=== PATIENT | male | born 1960 | race Caucasian/White ===

== ENCOUNTER → 2016-10-26 | Outpatient (CLI) | payer BC ==
[2015-03-08 10:45] VITALS: BP 140/65
[~2016-10-26] MED LIST: CELE200C PO; CIPR500T94 PO; CYCL10TA2 PO; HYDR-2762 PO; LISI-338 PO; OXYC-323 PO; Oxycodone Hcl/Acetaminophen PO
--- NOTE | 2016-10-28 20:08 | SLEEP ---
DATE OF STUDY: 10/26/2016 ATTENDING PHYSICIAN: Dr. Roque Gilmore. The patient is a 56-year-old who weighs 210 pounds with a BMI of 28. The patient had a history of sleep apnea, which was mild with moderate increase during supine sleep based on a study in 2012. At that time, he weighed 305 pounds. As a result of 100+ pound weight loss, he ____ for another sleep study. The patient had undergone gastric bypass. During the night study, the patient spent 408 minutes in bed and slept for 374 minutes with a sleep efficiency of 92%. Sleep latency was 3 minutes with a REM latency of 44 minutes, which is short. Overall, sleep architecture showed normal stage 1 sleep, increased stage 2 sleep, normal slow wave and normal REM sleep. During the initial diagnostic portion of the study, the patient slept for 134 minutes. During this time, there were 10 obstructive apneas, 3 mixed and no central apneas. There were 24 hypopneas. The patient's apnea-hypopnea index was 17 per hour, supine index 26 per hour and a REM index of 64 per hour. Review of nocturnal oximetry study revealed a mean oxygen saturation of 92% with the lowest of 79%. 9% of time oxygen saturation remained between 80% and 89%. EKG monitoring revealed normal sinus rhythm, average heart rate was 61 beats per minute, no sustained arrhythmias were observed. PLMS were seen at index of 45 per hour and 2 per hour caused EEG arousals. The patient met the criteria for CPAP initiation. It was started at 5 cm of water and titrated up to 9 cm of water. At the final pressure, the patient had 108 minutes of sleep. The patient had supine sleep throughout with the REM sleep was also observed. AHI was reduced to 0 per hour and oxygen saturation remained above 93%. The patient used a medium size full face mask. IMPRESSION: 1. Moderate sleep apnea-hypopnea syndrome with an AHI of 17 per hour with worsening AHI of 64 per hour during REM sleep. 2. Nocturnal hypoxia secondary to obstructive sleep apnea, but resolved with CPAP. 3. Severe periodic limb movements of sleep. RECOMMENDATIONS: 1. CPAP at 9 cm of water completely eliminated, the patient's sleep apnea should be used on a nightly basis. 2. Follow up in 4-6 weeks to assess compliance with CPAP and to document clinical improvement. 3. Further weight loss is advised. 4. Avoid [employer] depressants. 5. Caution regarding driving until symptoms of sleep apnea resolve with the use of CPAP. 6. The patient should be further evaluated for symptoms of restless legs during the day and if present, it can be treated with dopaminergic agonist agents. NADEEM JACKMAN MD DR: NICOLAS/gallito JOB#: [id number] / [id number] ROQUE Chan MD MTDD
== END | disposition home or self-care (01) ==
LOC: SLPLAB 18:47
PROVIDERS: ATTEND Family Medicine
DX: G47.33 Obstructive sleep apnea (adult) (pediatric) (principal)
CPT/HCPCS: 95810

== ENCOUNTER 2018-09-18 08:32 | Inpatient (IN) | payer BC ==
[~2018-09-18] VITALS: Ht 182.9 cm; Wt 95.3 kg
[~2018-09-18 08:32] MED LIST changes: -HYDR-2762 PO; +HYDR-2765 PO; -OXYC-323 PO; +OXYC1TAB15 PO
[2018-09-18] MEDS ORDERED: IV NORMAL SALINE 1000ML BAG 1,000 ML IV SCH (09:01)
--- NOTE | 2018-09-18 09:08 | PHYS DOC ---
Past Medical History Past Medical History: No Pertinent History Additional Past Surgical Histo: gastric bypass, multiple back surgeries Alcohol Use: None Drug Use: None Adult General Chief Complaint Chief Complaint: BACK PAIN - NO INJURY HPI HPI Patient is a 58 year old male who presents with upper abdominal pain that radiates into his back. This started shortly before arrival. Patient was going to the store. It was initially severe, less so now. There was some nausea, no vomiting. No worse with ambulation. Nothing seems to make it better or worse. Patient has surgical history of gastric bypass.[] Review of Systems Review of Systems Constitutional: Denies fever or chills [] Eyes: Denies change in visual acuity, redness, or eye pain [] HENT: Denies nasal congestion or sore throat [] Respiratory: Denies cough or shortness of breath [] Cardiovascular: No chest pain or palpitations[] GI: See history of present illness[] : Denies dysuria or hematuria [] Musculoskeletal: Denies back pain or joint pain [] Integument: Denies rash or skin lesions [] Neurologic: Denies headache, focal weakness or sensory changes [] Endocrine: Denies polyuria or polydipsia [] All other systems were reviewed and found to be within normal limits, except as documented in this note. Current Medications Current Medications Current Medications Medications (Trade) Dose Ordered Sig/Rosita Start Time Stop Time Status Last Admin Dose Admin Info (CONTRAST GIVEN -- Rx MONITORING) 1 each PRN DAILY PRN 09/18/18 09:45 09/20/18 09:44 Iohexol (Omnipaque 300 Mg/ml) 75 ml 1X ONCE 09/18/18 09:45 09/18/18 09:46 DC 09/18/18 09:37 75 ML Ondansetron HCl (Zofran) 4 mg 1X ONCE 09/18/18 09:15 09/18/18 09:16 DC 09/18/18 09:20 4 MG Pantoprazole Sodium (PROTONIX VIAL for IV PUSH) 40 mg 1X ONCE 09/18/18 09:15 09/18/18 09:16 DC 09/18/18 09:22 40 MG Sodium Chloride 1,000 ml @ 1,000 mls/hr Q1H 09/18/18 09:01 09/18/18 10:00 DC 09/18/18 09:18 1,000 MLS/HR Allergies Allergies Allergies Coded Allergies Type Severity Reaction Last Updated Verified No Known Drug Allergies 03/08/15 No Physical Exam Physical Exam Constitutional: Well developed, well nourished, no acute distress, non-toxic appearance. [] HENT: Normocephalic, atraumatic, bilateral external ears normal, oropharynx moist, no oral exudates, nose normal. [] Eyes: PERRLA, EOMI, conjunctiva normal, no discharge. [] Neck: Normal range of motion, no tenderness, supple, no stridor. [] Cardiovascular:Heart rate regular rhythm, no murmur [] Lungs & Thorax: Bilateral breath sounds clear to auscultation [] Abdomen: Bowel sounds normal, soft, gastric tenderness, no rebound, no guarding , no rigidity, no masses, no pulsatile masses. [] Skin: Warm, dry, no erythema, no rash. [] Back: No tenderness, no CVA tenderness. [] Extremities: No tenderness, no cyanosis, no clubbing, ROM intact, no edema. [] Neurologic: Alert and oriented X 3, normal motor function, normal sensory function, no focal deficits noted. [] Psychologic: Affect normal, judgement normal, mood normal. [] Current Patient Data Vital Signs Vital Signs Date Time Temp Pulse Resp B/P (MAP) Pulse Ox O2 Delivery O2 Flow Rate FiO2 09/18/18 09:00 98.6 69 16 126/74 (91) 98 Room Air 98.6 Lab Values Laboratory Tests Test 09/18/18 08:39 09/18/18 09:00 Urine Collection Type Unknown Urine Color Yellow Urine Clarity Clear Urine pH 7.5 Urine Specific Ashley 1.020 Urine Protein Negative mg/dL (NEG-TRACE) Urine Glucose (UA) Negative mg/dL (NEG) Urine Ketones (Stick) Negative mg/dL (NEG) Urine Blood Negative (NEG) Urine Nitrite Negative (NEG) Urine Bilirubin Negative (NEG) Urine Urobilinogen Dipstick 1.0 mg/dL (0.2 mg/dL) Urine Leukocyte Esterase Negative (NEG) Urine RBC 0 /HPF (0-2) Urine WBC 1-4 /HPF (0-4) Urine Squamous Epithelial Cells Occ /LPF Urine Bacteria 0 /HPF (0-FEW) White Blood Count 3.8 x10^3/uL (4.0-11.0) L Red Blood Count 5.27 x10^6/uL (4.30-5.70) Hemoglobin 15.2 g/dL (13.0-17.5) Hematocrit 45.7 % (39.0-53.0) Mean Corpuscular Volume 87 fL (79-100) Mean Corpuscular Hemoglobin 29 pg (25-35) Mean Corpuscular Hemoglobin Concent 33 g/dL (31-37) Red Cell Distribution Width 13.3 % (11.5-14.5) Platelet Count 198 x10^3/uL (140-400) Neutrophils (%) (Auto) 48 % (31-73) Lymphocytes (%) (Auto) 33 % (24-48) Monocytes (%) (Auto) 13 % (0-9) H Eosinophils (%) (Auto) 6 % (0-3) H Basophils (%) (Auto) 1 % (0-3) Neutrophils # (Auto) 1.8 x10^3uL (1.8-7.7) Lymphocytes # (Auto) 1.2 x10^3/uL (1.0-4.8) Monocytes # (Auto) 0.5 x10^3/uL (0.0-1.1) Eosinophils # (Auto) 0.2 x10^3/uL (0.0-0.7) Basophils # (Auto) 0.0 x10^3/uL (0.0-0.2) Prothrombin Time 13.3 SEC (11.7-14.0) Prothrombin Time INR 1.0 (0.8-1.1) Sodium Level 144 mmol/L (136-145) Potassium Level 3.8 mmol/L (3.5-5.1) Chloride Level 106 mmol/L (98-107) Carbon Dioxide Level 28 mmol/L (21-32) Anion Gap 10 (6-14) Blood Urea Nitrogen 11 mg/dL (8-26) Creatinine 0.6 mg/dL (0.7-1.3) L Estimated GFR (Cockcroft-Gault) 139.4 BUN/Creatinine Ratio 18 (6-20) Glucose Level 122 mg/dL (70-99) H Calcium Level 8.4 mg/dL (8.5-10.1) L Total Bilirubin 0.4 mg/dL (0.2-1.0) Aspartate Amino Transferase (AST) 55 U/L (15-37) H Alanine Aminotransferase (ALT) 37 U/L (16-63) Alkaline Phosphatase 105 U/L (46-116) Troponin I Quantitative < 0.017 ng/mL (0.000-0.055) Total Protein 6.9 g/dL (6.4-8.2) Albumin 3.5 g/dL (3.4-5.0) Albumin/Globulin Ratio 1.0 (1.0-1.7) Lipase 1184 U/L (73-393) H Laboratory Tests 09/18/18 09:00 Laboratory Tests 09/18/18 09:00 EKG EKG EKG shows sinus rhythm at 64 bpm, left axis, QTC of 404 ms, no ST elevations, interpreted by me at 0906[] Radiology/Procedures Radiology/Procedures CT abdomen pelvis with contrast. HISTORY: Upper abdominal pain, history gastric bypass CT scan the abdomen and pelvis was done using 75 mL Omnipaque 300 contrast. Lung bases are clear. There is no effusion. A liver lesion is not identified. There is no calcified gallstone. Spleen and adrenal glands are normal. Pancreatic duct is mildly prominent. There is a dilated duct versus a pancreatic cyst in the head of the pancreas, follow-up would be of benefit. There is no mass or hydronephrosis in the kidneys. There is no adenopathy or ascites. Patient's had gastric bypass. There is moderate fluid in the stomach. There is no bowel obstruction. There is no ascites. Appendix is normal. Patient's had previous lumbar spine laminectomy and fusion. IMPRESSION: 1. Previous lumbar surgery. 2. Previous gastric bypass. 3. Mild to moderate fluid in the stomach. 4. No bowel obstruction or ascites or other acute finding in the abdomen. 5. Dilated pancreatic duct with a dilated duct or cyst in the head of the pancreas, follow-up would be of benefit. EXAM: Chest, single view. HISTORY: Upper abdominal pain. COMPARISON: None. FINDINGS: A frontal view of the chest is obtained. There is no infiltrate, pleural effusion or pneumothorax. The heart is normal in size. IMPRESSION: No acute pulmonary finding. [] Course & Med Decision Making Course & Med Decision Making Pertinent Labs and Imaging studies reviewed. (See chart for details) ED course: Patient arrived, was placed in bed and, tolerated exam well. He was given IV fluids as well as pain medicines. He was transported to and from CT with any complications. After the return of laboratory and CT findings, these were discussed with the patient who voiced understanding. All questions were answered. Consultation was made with hospitalist service for admission and further evaluation and treatment. Patient was admitted In improved condition. Medical decision making: Initially concerned about failure of his gastric bypass versus dissecting aneurysm versus possibility of a cardiac or pulmonary abnormality. Neither these seem to be present. Patient does have pancreatitis and so will be admitted.[] Dragon Disclaimer Dragon Disclaimer This electronic medical record was generated, in whole or in part, using a voice recognition dictation system. Departure Departure Impression: Primary Impression: Acute pancreatitis Disposition: 01 HOME, SELF-CARE Admitting Physician: Ryan Ball Condition: IMPROVED Referrals: BARTOLOME BOOTHE MD (PCP) Problem Qualifiers Primary Impression: Acute pancreatitis Pancreatitis type: unspecified pancreatitis type Acute pancreatitis complication: unspecified Qualified Codes: K85.90 - Acute pancreatitis without necrosis or infection, unspecified KEISHA KING DO Sep 18, 2018 09:08
[2018-09-18 09:15] LABS: BASO % 1 % (0-3); EOS # 0.2 x10^3/uL (0.0-0.7); EOS % 6 % (0-3); HEMATOCRIT 45.7 % (39.0-53.0); HEMOGLOBIN 15.2 g/dL (13.0-17.5); LYMPH # 1.2 x10^3/uL (1.0-4.8); LYMPH % 33 % (24-48); MEAN CORPUSCULAR HEMOGLOBIN 29 pg (25-35); MEAN CORPUSCULAR HGB CONC 33 g/dL (31-37); MEAN CORPUSCULAR VOLUME 87 fL (79-100); MONO # 0.5 x10^3/uL (0.0-1.1); MONO % 13 % (0-9); NEUT # 1.8 x10^3uL (1.8-7.7); NEUT % 48 % (31-73); PLATELET COUNT 198 x10^3/uL (140-400); RED BLOOD COUNT 5.27 x10^6/uL (4.30-5.70); RED CELL DISTRIBUTION WIDTH 13.3 % (11.5-14.5); WHITE BLOOD COUNT 3.8 x10^3/uL (4.0-11.0)
[2018-09-18] MEDS ORDERED: PANTOPRAZOLE IV PUSH 40 MG VIAL. IVP ONE (09:15)
[2018-09-18] MEDS ORDERED: ONDANSETRON PF 4 MG/2 ML VIAL. IV ONE (09:15)
[2018-09-18 09:19] LABS: BILIRUBIN,URINE NEGATIVE (NEG); CLARITY,URINE CLEAR; COLOR,URINE YELLOW; NITRITE,URINE NEGATIVE (NEG); PH,URINE 7.5; PROTEIN,URINE NEGATIVE (NEG-TRACE)
[2018-09-18 09:21] LABS: CALCIUM 8.4 mg/dL (8.5-10.1); CREATININE 0.6 mg/dL (0.7-1.3); GFR 139.4; POTASSIUM 3.8 mmol/L (3.5-5.1)
--- NOTE | 2018-09-18 09:27 | RAD ---
EXAM: Chest, single view. HISTORY: Upper abdominal pain. COMPARISON: None. FINDINGS: A frontal view of the chest is obtained. There is no infiltrate, pleural effusion or pneumothorax. The heart is normal in size. IMPRESSION: No acute pulmonary finding. Electronically signed by: Lisette Leigh MD (09/18/2018 9:24 AM) [facility]
[2018-09-18 09:29] LABS: ALBUMIN 3.5 g/dL (3.4-5.0); TOTAL BILIRUBIN 0.4 mg/dL (0.2-1.0); TOTAL PROTEIN 6.9 g/dL (6.4-8.2)
[2018-09-18 09:32] LABS: BACTERIA,URINE 0 /HPF (0-FEW); RBC,URINE 0 /HPF (0-2); SQUAMOUS EPITHELIAL CELL,UR OCC /LPF
[2018-09-18 09:35] LABS: PROTHROMBIN TIME PATIENT 13.3 SEC (11.7-14.0)
[2018-09-18] MEDS ORDERED: IOHEXOL 300 MG/ML 100ML VIAL. IV ONE (09:45)
[2018-09-18] MEDS ORDERED: CONTRAST GIVEN. MC PRN (09:45)
--- NOTE | 2018-09-18 09:55 | RAD ---
CT abdomen pelvis with contrast. HISTORY: Upper abdominal pain, history gastric bypass CT scan the abdomen and pelvis was done using 75 mL Omnipaque 300 contrast. Lung bases are clear. There is no effusion. A liver lesion is not identified. There is no calcified gallstone. Spleen and adrenal glands are normal. Pancreatic duct is mildly prominent. There is a dilated duct versus a pancreatic cyst in the head of the pancreas, follow-up would be of benefit. There is no mass or hydronephrosis in the kidneys. There is no adenopathy or ascites. Patient's had gastric bypass. There is moderate fluid in the stomach. There is no bowel obstruction. There is no ascites. Appendix is normal. Patient's had previous lumbar spine laminectomy and fusion. IMPRESSION: 1. Previous lumbar surgery. 2. Previous gastric bypass. 3. Mild to moderate fluid in the stomach. 4. No bowel obstruction or ascites or other acute finding in the abdomen. 5. Dilated pancreatic duct with a dilated duct or cyst in the head of the pancreas, follow-up would be of benefit. Electronically signed by: Boni Santos MD (09/18/2018 9:52 AM) [facility]
[2018-09-18] MEDS: IV NORMAL SALINE 1000ML BAG 1,000 ML IV SCH ×3 (10:28→23:48)
[2018-09-18] MEDS ORDERED: ACETAMINOPHEN 325 MG TABLET. PO PRN (10:30)
[2018-09-18] MEDS ORDERED: ONDANSETRON PF 4 MG/2 ML VIAL. IV PRN (10:30)
--- NOTE | 2018-09-18 10:58 | RAD ---
Ultrasound the abdomen limited. HISTORY: Epigastric and right upper quadrant pain Ultrasound was used to evaluate the abdomen. The pancreas was obscured by bowel gas. The proximal aorta and vena cava were unremarkable at the liver. The distal aorta is poorly visualized. A focal liver lesion was not identified. There are gallstones in the gallbladder. There was mild gallbladder wall thickening, the pattern suggests acute cholecystitis. Common duct was normal measuring 3 mm. Right kidney was 11 cm in length without a mass or hydronephrosis. IMPRESSION: 1. Cholelithiasis with cholecystitis. Electronically signed by: Boni Santos MD (09/18/2018 10:55 AM) [facility]
[2018-09-18] MEDS ORDERED: PIP/TAZO PER PHARMACY MC PRN (11:45)
--- NOTE | 2018-09-18 11:55 | NUR ---
PATIENT ARRIVED ON THE UNIT PER BED, AT THE BEDSIDE, QUESTIONS AND CONCERNS ANSWERED, ADMISSION COMPLETED. PATIENT NPO AT THIS TIME, MAY HAVE ICE CHIPS, WILL REVIEW MEDS AND ADMINISTER ACCORDINGLY.
[2018-09-18 12:30] VITALS: BP 108/71
--- NOTE | 2018-09-18 13:00 | HP ---
ADMIT DATE: 09/18/2018 CHIEF COMPLAINT: Abdominal pain. HISTORY OF PRESENT ILLNESS: The patient is a pleasant middle-aged male, who presented with abdominal pain. He states he was doing well this morning, ate breakfast and tolerated that. Within an hour or two later, he developed severe abdominal pain, rated at 10/10. He has associated nausea, food made it worse. Sitting still made it better, [id number] meds did not seem to help. I discussed the case with ER physician. We are going to admit the patient and consult GI. PAST MEDICAL HISTORY: Gastric bypass, multiple back surgeries. ALLERGIES: None. FAMILY HISTORY: Hypertension. SOCIAL HISTORY: He does not drink, smoke or take drugs. He is retired. MEDICATIONS: Reviewed, please refer to the [facility]AD. REVIEW OF SYSTEMS: GENERAL: No history of weight change, weakness or fevers. SKIN: No bruising, hair changes or rashes. EYES: No blurred, double or loss of vision. NOSE AND THROAT: No history of nosebleeds, hoarseness or sore throat. HEART: No history of palpitations, chest pain or shortness of breath on exertion. LUNGS: Denies cough, hemoptysis, wheezing or shortness of breath. GASTROINTESTINAL: He complains of abdominal pain. GENITOURINARY: No history of frequency, urgency, hesitancy or nocturia. NEUROLOGIC: He complains of some dizziness. PSYCHIATRIC: No history of panic, anxiety or depression. ENDOCRINE: No history of heat or cold intolerance, polyuria or polydipsia. EXTREMITIES: Denies muscle weakness, joint pain, pain on walking or stiffness PHYSICAL EXAMINATION: VITAL SIGNS: Temperature afebrile, pulse 98, respirations 18, blood pressure 144/90. GENERAL: He is alert, cooperative. His is present. HEART: Normal S1, S2. LUNGS: Clear to auscultation. ABDOMEN: Soft, tender in the lower quadrants. EXTREMITIES: No edema. SKIN: No rash. ENDOCRINE: No thyromegaly. LYMPHATICS: No cervical nodes. HEMATOPOIETIC: No bruising. LABORATORY DATA: White count 4, hemoglobin 15, platelets 198. Electrolytes are normal. Troponin is 0. Lipase is 1184. INR 1. Urinalysis negative. CT of the abdomen shows a dilated pancreatic duct and a dilated cyst in the head of the pancreas. Abdominal ultrasound shows gallstones with cholecystitis. ASSESSMENT AND PLAN: Pancreatitis secondary to gallstones and cholecystitis. The patient has been admitted. We will consult GI and General Surgery. IV fluids, p.r.n. narcotics, p.r.n. Zofran. DVT prophylaxis, home meds. Full code. N.p.o. for now. CRISTINA PATEL DO DR: ZEYNEP/gallito JOB#: [id number] / [id number]
[2018-09-18] MEDS: PIPERACILLIN/TAZOBACTAM 3.375 GM in IV NORMAL SALINE 50ML 50 ML IV SCH ×2 (13:10→19:15)
[2018-09-18 14:37] VITALS: BP 110/74
[2018-09-18] MEDS: MORPHINE SULFATE 4 MG/ML VIAL. IV PRN ×2 (14:43→21:08)
--- NOTE | 2018-09-18 16:46 | PDOC2 ---
CONSULT Date of Consult Date of Consult DATE: 09/18/18 TIME: 16:39 Reason for Consult Reason for Consult: gall stone pancreatitis Referring Physician Referring Physician: DEVAUGHN Identification/Chief Complaint Chief Complaint RUQ, epigastric pain Source Source: Chart review, Patient History of Present Illness Reason for Visit: Jacques is a 58 yo gentleman with acute onset of epigastric and RUQ pain . Came to the ED where US and CT showed gallstones with acute changes in the GB. Also has a serum lipase >1100 Past Medical History Cardiovascular: No pertinent hx, Other Pulmonary: No pertinent hx, Other GI: No pertinent hx Heme/Onc: No pertinent hx Hepatobiliary: No pertinent hx Psych: No pertinent hx Musculoskeletal: Other Rheumatologic: No pertinent hx Infectious disease: No pertinent hx Renal/: Other Endocrine: No pertinent hx Past Surgical History Past Surgical History: Other (gastric bypass, back surgeries ) Family History Family History: Coronary Artery Disease Social History Quit (ten years ago) ALCOHOL: none Drugs: None Lives: with Family Domestic Violence: Neg Current Medications Current Medications Current Medications Sodium Chloride 1,000 ml @ 1,000 mls/hr Q1H IV Last administered on 09/18/18at 09:18; Start 09/18/18 at 09:01; Stop 09/18/18 at 10:00; Status DC Ondansetron HCl (Zofran) 4 mg 1X ONCE IV Last administered on 09/18/18at 09:20 ; Start 09/18/18 at 09:15; Stop 09/18/18 at 09:16; Status DC Pantoprazole Sodium (PROTONIX VIAL for IV PUSH) 40 mg 1X ONCE IVP Last administered on 09/18/18at 09:22; Start 09/18/18 at 09:15; Stop 09/18/18 at 09:16 ; Status DC Iohexol (Omnipaque 300 Mg/ml) 75 ml 1X ONCE IV Last administered on 09/18/18at 09:37; Start 09/18/18 at 09:45; Stop 09/18/18 at 09:46; Status DC Info (CONTRAST GIVEN -- Rx MONITORING) 1 each PRN DAILY PRN MC SEE COMMENTS; Start 09/18/18 at 09:45; Stop 09/20/18 at 09:44 Ondansetron HCl (Zofran) 4 mg PRN Q8HRS PRN IV NAUSEA/VOMITING; Start 09/18/18 at 10:30; Stop 09/19/18 at 10:29 Morphine Sulfate (Morphine Sulfate) 4 mg PRN Q2HR PRN IV PAIN Last administered on 09/18/18at 14:43; Start 09/18/18 at 10:30; Stop 09/19/18 at 10:29 Sodium Chloride 1,000 ml @ 150 mls/hr Q6H40M IV Last administered on at 10:28; Start 09/18/18 at 10:28; Stop 09/19/18 at 10:27 Acetaminophen (Tylenol) 650 mg PRN Q4HRS PRN PO FEVER; Start 09/18/18 at 10:30 ; Stop 09/19/18 at 10:29 Piperacillin Sod/ Tazobactam Sod (Zosyn Per Pharmacy) 1 each PRN DAILY PRN MC SEE COMMENTS; Start 09/18/18 at 11:45 Piperacillin Sod/ Tazobactam Sod 3.375 gm/Sodium Chloride 50 ml @ 100 mls/hr Q6HRS IV Last administered on 09/18/18at 13:10; Start 09/18/18 at 12:00 Active Scripts Active [Oxycodone Hcl/Acetaminophen] 1 TAB Tablet 1 Tab PO PRN Q4HRS PRN Reported Cyclobenzaprine Hcl 10 Mg Tablet 1 Tab PO TID Cyclobenzaprine Hcl 10 Mg Tablet 1 Tab PO TID PRN Percocet 5-325 Mg Tablet (Oxycodone/Acetaminophen) 1 Each Tablet 1-2 Tab PO Q4DAYS Lisinopril 5 Mg Tablet 1 Tab PO DAILY LAST DOSE GIVEN: DATE: 03/08 TIME: 9 am NEXT DOSE DUE: DATE: 03/09 TIME: 9 am Allergies Allergies: Coded Allergies: No Known Drug Allergies (Unverified , 03/08/15) ROS Review of System negative with exception of present complaints Physical Exam General: Alert, Oriented X3, No acute distress HEENT: Atraumatic Lungs: Normal air movement Heart: Regular rate Abdomen: Soft, Other (minimally TTP in the RUQ, epigastrium) Vitals VITALS Vital Signs Date Time Temp Pulse Resp B/P (MAP) Pulse Ox O2 Delivery O2 Flow Rate FiO2 09/18/18 14:43 20 94 Room Air 09/18/18 14:37 98.0 60 110/74 (86) 98.0 Labs Labs Laboratory Tests Test 09/18/18 08:39 09/18/18 09:00 Urine Collection Type Unknown Urine Color Yellow Urine Clarity Clear Urine pH 7.5 Urine Specific [place] 1.020 Urine Protein Negative mg/dL (NEG-TRACE) Urine Glucose (UA) Negative mg/dL (NEG) Urine Ketones (Stick) Negative mg/dL (NEG) Urine Blood Negative (NEG) Urine Nitrite Negative (NEG) Urine Bilirubin Negative (NEG) Urine Urobilinogen Dipstick 1.0 mg/dL (0.2 mg/dL) Urine Leukocyte Esterase Negative (NEG) Urine RBC 0 /HPF (0-2) Urine WBC 1-4 /HPF (0-4) Urine Squamous Epithelial Cells Occ /LPF Urine Bacteria 0 /HPF (0-FEW) White Blood Count 3.8 x10^3/uL (4.0-11.0) Red Blood Count 5.27 x10^6/uL (4.30-5.70) Hemoglobin 15.2 g/dL (13.0-17.5) Hematocrit 45.7 % (39.0-53.0) Mean Corpuscular Volume 87 fL (79-100) Mean Corpuscular Hemoglobin 29 pg (25-35) Mean Corpuscular Hemoglobin Concent 33 g/dL (31-37) Red Cell Distribution Width 13.3 % (11.5-14.5) Platelet Count 198 x10^3/uL (140-400) Neutrophils (%) (Auto) 48 % (31-73) Lymphocytes (%) (Auto) 33 % (24-48) Monocytes (%) (Auto) 13 % (0-9) Eosinophils (%) (Auto) 6 % (0-3) Basophils (%) (Auto) 1 % (0-3) Neutrophils # (Auto) 1.8 x10^3uL (1.8-7.7) Lymphocytes # (Auto) 1.2 x10^3/uL (1.0-4.8) Monocytes # (Auto) 0.5 x10^3/uL (0.0-1.1) Eosinophils # (Auto) 0.2 x10^3/uL (0.0-0.7) Basophils # (Auto) 0.0 x10^3/uL (0.0-0.2) Prothrombin Time 13.3 SEC (11.7-14.0) Prothromb Time International Ratio 1.0 (0.8-1.1) Sodium Level 144 mmol/L (136-145) Potassium Level 3.8 mmol/L (3.5-5.1) Chloride Level 106 mmol/L (98-107) Carbon Dioxide Level 28 mmol/L (21-32) Anion Gap 10 (6-14) Blood Urea Nitrogen 11 mg/dL (8-26) Creatinine 0.6 mg/dL (0.7-1.3) Estimated GFR (Cockcroft-Gault) 139.4 BUN/Creatinine Ratio 18 (6-20) Glucose Level 122 mg/dL (70-99) Calcium Level 8.4 mg/dL (8.5-10.1) Total Bilirubin 0.4 mg/dL (0.2-1.0) Aspartate Amino Transf (AST/SGOT) 55 U/L (15-37) Alanine Aminotransferase (ALT/SGPT) 37 U/L (16-63) Alkaline Phosphatase 105 U/L (46-116) Troponin I Quantitative < 0.017 ng/mL (0.000-0.055) Total Protein 6.9 g/dL (6.4-8.2) Albumin 3.5 g/dL (3.4-5.0) Albumin/Globulin Ratio 1.0 (1.0-1.7) Lipase 1184 U/L (73-393) Laboratory Tests Test 09/18/18 08:39 09/18/18 09:00 Urine Collection Type Unknown Urine Color Yellow Urine Clarity Clear Urine pH 7.5 Urine Specific [place] 1.020 Urine Protein Negative mg/dL (NEG-TRACE) Urine Glucose (UA) Negative mg/dL (NEG) Urine Ketones (Stick) Negative mg/dL (NEG) Urine Blood Negative (NEG) Urine Nitrite Negative (NEG) Urine Bilirubin Negative (NEG) Urine Urobilinogen Dipstick 1.0 mg/dL (0.2 mg/dL) Urine Leukocyte Esterase Negative (NEG) Urine RBC 0 /HPF (0-2) Urine WBC 1-4 /HPF (0-4) Urine Squamous Epithelial Cells Occ /LPF Urine Bacteria 0 /HPF (0-FEW) White Blood Count 3.8 x10^3/uL (4.0-11.0) Red Blood Count 5.27 x10^6/uL (4.30-5.70) Hemoglobin 15.2 g/dL (13.0-17.5) Hematocrit 45.7 % (39.0-53.0) Mean Corpuscular Volume 87 fL (79-100) Mean Corpuscular Hemoglobin 29 pg (25-35) Mean Corpuscular Hemoglobin Concent 33 g/dL (31-37) Red Cell Distribution Width 13.3 % (11.5-14.5) Platelet Count 198 x10^3/uL (140-400) Neutrophils (%) (Auto) 48 % (31-73) Lymphocytes (%) (Auto) 33 % (24-48) Monocytes (%) (Auto) 13 % (0-9) Eosinophils (%) (Auto) 6 % (0-3) Basophils (%) (Auto) 1 % (0-3) Neutrophils # (Auto) 1.8 x10^3uL (1.8-7.7) Lymphocytes # (Auto) 1.2 x10^3/uL (1.0-4.8) Monocytes # (Auto) 0.5 x10^3/uL (0.0-1.1) Eosinophils # (Auto) 0.2 x10^3/uL (0.0-0.7) Basophils # (Auto) 0.0 x10^3/uL (0.0-0.2) Prothrombin Time 13.3 SEC (11.7-14.0) Prothromb Time International Ratio 1.0 (0.8-1.1) Sodium Level 144 mmol/L (136-145) Potassium Level 3.8 mmol/L (3.5-5.1) Chloride Level 106 mmol/L (98-107) Carbon Dioxide Level 28 mmol/L (21-32) Anion Gap 10 (6-14) Blood Urea Nitrogen 11 mg/dL (8-26) Creatinine 0.6 mg/dL (0.7-1.3) Estimated GFR (Cockcroft-Gault) 139.4 BUN/Creatinine Ratio 18 (6-20) Glucose Level 122 mg/dL (70-99) Calcium Level 8.4 mg/dL (8.5-10.1) Total Bilirubin 0.4 mg/dL (0.2-1.0) Aspartate Amino Transf (AST/SGOT) 55 U/L (15-37) Alanine Aminotransferase (ALT/SGPT) 37 U/L (16-63) Alkaline Phosphatase 105 U/L (46-116) Troponin I Quantitative < 0.017 ng/mL (0.000-0.055) Total Protein 6.9 g/dL (6.4-8.2) Albumin 3.5 g/dL (3.4-5.0) Albumin/Globulin Ratio 1.0 (1.0-1.7) Lipase 1184 U/L (73-393) note lipase of 1184 Images Images US and CT done earlier are reviewed Assessment/Plan Assessment/Plan gall stone pancreatitis defervesce acute episode needs cholecystectomy d/w Jacques, his and three other family members explained surgical risks including but not limited to bleeding, infection, injury to bowel, liver or bile ducts with bile leak or bile blockage requiring further surgical interventions possible open procedure, diarrhea post op he will take this under advisement will follow Thanks for consult MIKE HERRERA MD Sep 18, 2018 16:46
--- NOTE | 2018-09-18 17:20 | PDOC2 ---
CONSULT Date of Consult Date of Consult DATE: 09/18/18 TIME: 17:03 History of Present Illness Reason for Visit: 58 yo male with onset over pasat day or so of severe epigastric pain. he had some mild upper abd pain a few days ago after working out but this was different. He has never had pain like this before and did not know he had gallstones. He has hx of obesity and had gastric bypass at [facility] 2 years ago and lost over 100 lbs. He denies DM, GERD but does have some fullness after certain foods and is on a restricted diet. He denies any alcohol and NO meds which as associated with pancreatitis. He has regular bowel pattern and had colonoscopy with polypectomy about 3 years at at [facility]. Past Medical History Cardiovascular: No pertinent hx, Other Pulmonary: No pertinent hx, Other GI: No pertinent hx Heme/Onc: No pertinent hx Hepatobiliary: No pertinent hx Psych: No pertinent hx Musculoskeletal: Other Rheumatologic: No pertinent hx Infectious disease: No pertinent hx Renal/: Other Endocrine: No pertinent hx Past Surgical History Past Surgical History: Other (gastric bypass, back surgeries ) Family History Family History: Coronary Artery Disease Social History Quit (ten years ago) ALCOHOL: none Drugs: None Lives: with Family Domestic Violence: Neg Current Medications Current Medications Current Medications Sodium Chloride 1,000 ml @ 1,000 mls/hr Q1H IV Last administered on 09/18/18at 09:18; Start 09/18/18 at 09:01; Stop 09/18/18 at 10:00; Status DC Ondansetron HCl (Zofran) 4 mg 1X ONCE IV Last administered on 09/18/18at 09:20 ; Start 09/18/18 at 09:15; Stop 09/18/18 at 09:16; Status DC Pantoprazole Sodium (PROTONIX VIAL for IV PUSH) 40 mg 1X ONCE IVP Last administered on 09/18/18at 09:22; Start 09/18/18 at 09:15; Stop 09/18/18 at 09:16 ; Status DC Iohexol (Omnipaque 300 Mg/ml) 75 ml 1X ONCE IV Last administered on 09/18/18at 09:37; Start 09/18/18 at 09:45; Stop 09/18/18 at 09:46; Status DC Info (CONTRAST GIVEN -- Rx MONITORING) 1 each PRN DAILY PRN MC SEE COMMENTS; Start 09/18/18 at 09:45; Stop 09/20/18 at 09:44 Ondansetron HCl (Zofran) 4 mg PRN Q8HRS PRN IV NAUSEA/VOMITING; Start 09/18/18 at 10:30; Stop 09/19/18 at 10:29 Morphine Sulfate (Morphine Sulfate) 4 mg PRN Q2HR PRN IV PAIN Last administered on 09/18/18at 14:43; Start 09/18/18 at 10:30; Stop 09/19/18 at 10:29 Sodium Chloride 1,000 ml @ 150 mls/hr Q6H40M IV Last administered on at 10:28; Start 09/18/18 at 10:28; Stop 09/19/18 at 10:27 Acetaminophen (Tylenol) 650 mg PRN Q4HRS PRN PO FEVER; Start 09/18/18 at 10:30 ; Stop 09/19/18 at 10:29 Piperacillin Sod/ Tazobactam Sod (Zosyn Per Pharmacy) 1 each PRN DAILY PRN MC SEE COMMENTS; Start 09/18/18 at 11:45 Piperacillin Sod/ Tazobactam Sod 3.375 gm/Sodium Chloride 50 ml @ 100 mls/hr Q6HRS IV Last administered on 09/18/18at 13:10; Start 09/18/18 at 12:00 Active Scripts Active [Oxycodone Hcl/Acetaminophen] 1 TAB Tablet 1 Tab PO PRN Q4HRS PRN Reported Cyclobenzaprine Hcl 10 Mg Tablet 1 Tab PO TID Cyclobenzaprine Hcl 10 Mg Tablet 1 Tab PO TID PRN Percocet 5-325 Mg Tablet (Oxycodone/Acetaminophen) 1 Each Tablet 1-2 Tab PO Q4DAYS Lisinopril 5 Mg Tablet 1 Tab PO DAILY LAST DOSE GIVEN: DATE: 03/08 TIME: 9 am NEXT DOSE DUE: DATE: 03/09 TIME: 9 am Allergies Allergies: Coded Allergies: No Known Drug Allergies (Unverified , 03/08/15) Physical Exam General: Alert, Oriented X3 HEENT: PERRLA Lungs: Clear to auscultation Heart: Regular rate, Normal S1, Normal S2 Abdomen: Normal bowel sounds, Soft, No hepatosplenomegaly, Other (mile epigastric tenderness) Extremities: No clubbing, No cyanosis Skin: No rashes Neuro: Normal speech Psych/Mental Status: Mental status NL Vitals VITALS Vital Signs Date Time Temp Pulse Resp B/P (MAP) Pulse Ox O2 Delivery O2 Flow Rate FiO2 09/18/18 14:43 20 94 Room Air 09/18/18 14:37 98.0 60 110/74 (86) 98.0 Labs Labs Laboratory Tests Test 09/18/18 08:39 09/18/18 09:00 Urine Collection Type Unknown Urine Color Yellow Urine Clarity Clear Urine pH 7.5 Urine Specific [place] 1.020 Urine Protein Negative mg/dL (NEG-TRACE) Urine Glucose (UA) Negative mg/dL (NEG) Urine Ketones (Stick) Negative mg/dL (NEG) Urine Blood Negative (NEG) Urine Nitrite Negative (NEG) Urine Bilirubin Negative (NEG) Urine Urobilinogen Dipstick 1.0 mg/dL (0.2 mg/dL) Urine Leukocyte Esterase Negative (NEG) Urine RBC 0 /HPF (0-2) Urine WBC 1-4 /HPF (0-4) Urine Squamous Epithelial Cells Occ /LPF Urine Bacteria 0 /HPF (0-FEW) White Blood Count 3.8 x10^3/uL (4.0-11.0) Red Blood Count 5.27 x10^6/uL (4.30-5.70) Hemoglobin 15.2 g/dL (13.0-17.5) Hematocrit 45.7 % (39.0-53.0) Mean Corpuscular Volume 87 fL (79-100) Mean Corpuscular Hemoglobin 29 pg (25-35) Mean Corpuscular Hemoglobin Concent 33 g/dL (31-37) Red Cell Distribution Width 13.3 % (11.5-14.5) Platelet Count 198 x10^3/uL (140-400) Neutrophils (%) (Auto) 48 % (31-73) Lymphocytes (%) (Auto) 33 % (24-48) Monocytes (%) (Auto) 13 % (0-9) Eosinophils (%) (Auto) 6 % (0-3) Basophils (%) (Auto) 1 % (0-3) Neutrophils # (Auto) 1.8 x10^3uL (1.8-7.7) Lymphocytes # (Auto) 1.2 x10^3/uL (1.0-4.8) Monocytes # (Auto) 0.5 x10^3/uL (0.0-1.1) Eosinophils # (Auto) 0.2 x10^3/uL (0.0-0.7) Basophils # (Auto) 0.0 x10^3/uL (0.0-0.2) Prothrombin Time 13.3 SEC (11.7-14.0) Prothromb Time International Ratio 1.0 (0.8-1.1) Sodium Level 144 mmol/L (136-145) Potassium Level 3.8 mmol/L (3.5-5.1) Chloride Level 106 mmol/L (98-107) Carbon Dioxide Level 28 mmol/L (21-32) Anion Gap 10 (6-14) Blood Urea Nitrogen 11 mg/dL (8-26) Creatinine 0.6 mg/dL (0.7-1.3) Estimated GFR (Cockcroft-Gault) 139.4 BUN/Creatinine Ratio 18 (6-20) Glucose Level 122 mg/dL (70-99) Calcium Level 8.4 mg/dL (8.5-10.1) Total Bilirubin 0.4 mg/dL (0.2-1.0) Aspartate Amino Transf (AST/SGOT) 55 U/L (15-37) Alanine Aminotransferase (ALT/SGPT) 37 U/L (16-63) Alkaline Phosphatase 105 U/L (46-116) Troponin I Quantitative < 0.017 ng/mL (0.000-0.055) Total Protein 6.9 g/dL (6.4-8.2) Albumin 3.5 g/dL (3.4-5.0) Albumin/Globulin Ratio 1.0 (1.0-1.7) Lipase 1184 U/L (73-393) Laboratory Tests Test 09/18/18 08:39 09/18/18 09:00 Urine Collection Type Unknown Urine Color Yellow Urine Clarity Clear Urine pH 7.5 Urine Specific [place] 1.020 Urine Protein Negative mg/dL (NEG-TRACE) Urine Glucose (UA) Negative mg/dL (NEG) Urine Ketones (Stick) Negative mg/dL (NEG) Urine Blood Negative (NEG) Urine Nitrite Negative (NEG) Urine Bilirubin Negative (NEG) Urine Urobilinogen Dipstick 1.0 mg/dL (0.2 mg/dL) Urine Leukocyte Esterase Negative (NEG) Urine RBC 0 /HPF (0-2) Urine WBC 1-4 /HPF (0-4) Urine Squamous Epithelial Cells Occ /LPF Urine Bacteria 0 /HPF (0-FEW) White Blood Count 3.8 x10^3/uL (4.0-11.0) Red Blood Count 5.27 x10^6/uL (4.30-5.70) Hemoglobin 15.2 g/dL (13.0-17.5) Hematocrit 45.7 % (39.0-53.0) Mean Corpuscular Volume 87 fL (79-100) Mean Corpuscular Hemoglobin 29 pg (25-35) Mean Corpuscular Hemoglobin Concent 33 g/dL (31-37) Red Cell Distribution Width 13.3 % (11.5-14.5) Platelet Count 198 x10^3/uL (140-400) Neutrophils (%) (Auto) 48 % (31-73) Lymphocytes (%) (Auto) 33 % (24-48) Monocytes (%) (Auto) 13 % (0-9) Eosinophils (%) (Auto) 6 % (0-3) Basophils (%) (Auto) 1 % (0-3) Neutrophils # (Auto) 1.8 x10^3uL (1.8-7.7) Lymphocytes # (Auto) 1.2 x10^3/uL (1.0-4.8) Monocytes # (Auto) 0.5 x10^3/uL (0.0-1.1) Eosinophils # (Auto) 0.2 x10^3/uL (0.0-0.7) Basophils # (Auto) 0.0 x10^3/uL (0.0-0.2) Prothrombin Time 13.3 SEC (11.7-14.0) Prothromb Time International Ratio 1.0 (0.8-1.1) Sodium Level 144 mmol/L (136-145) Potassium Level 3.8 mmol/L (3.5-5.1) Chloride Level 106 mmol/L (98-107) Carbon Dioxide Level 28 mmol/L (21-32) Anion Gap 10 (6-14) Blood Urea Nitrogen 11 mg/dL (8-26) Creatinine 0.6 mg/dL (0.7-1.3) Estimated GFR (Cockcroft-Gault) 139.4 BUN/Creatinine Ratio 18 (6-20) Glucose Level 122 mg/dL (70-99) Calcium Level 8.4 mg/dL (8.5-10.1) Total Bilirubin 0.4 mg/dL (0.2-1.0) Aspartate Amino Transf (AST/SGOT) 55 U/L (15-37) Alanine Aminotransferase (ALT/SGPT) 37 U/L (16-63) Alkaline Phosphatase 105 U/L (46-116) Troponin I Quantitative < 0.017 ng/mL (0.000-0.055) Total Protein 6.9 g/dL (6.4-8.2) Albumin 3.5 g/dL (3.4-5.0) Albumin/Globulin Ratio 1.0 (1.0-1.7) Lipase 1184 U/L (73-393) Assessment/Plan Assessment/Plan Acute pancreatitis- with elevated lipase but little inflammation on CT- just a mildy dilated panc duct. There are gallstones present but CBD is normal at 3 mm and LFTS are also normal. he denies alcohol so most likely related to passage of small gallstone recently. Hx of obesity and prior gastric bypass- with over 100 lb weight loss- overall healthy with resolution of prior HTN and obesity but this weight loss likely this contributed to gallstone formation. He denies chronic biliary or dyspepsic symptoms other than those associated with bypass. Plan monitor; agree with surgery consult and plans. GISELLE DASILVA MD Sep 18, 2018 17:20
[2018-09-18 19:00] VITALS: BP 115/68
[2018-09-18 23:00] VITALS: BP 104/58
[2018-09-19] VITALS (10 sets, daily range): BP systolic 96–134; BP diastolic 54–81
[2018-09-19] MEDS: PIPERACILLIN/TAZOBACTAM 3.375 GM in IV NORMAL SALINE 50ML 50 ML IV SCH ×4 (00:03→18:12)
[2018-09-19] MEDS: IV NORMAL SALINE 1000ML BAG 1,000 ML IV SCH (05:14)
[2018-09-19 06:58] LABS: BASO % 1 % (0-3); EOS # 0.2 x10^3/uL (0.0-0.7); EOS % 6 % (0-3); HEMATOCRIT 43.9 % (39.0-53.0); HEMOGLOBIN 14.3 g/dL (13.0-17.5); LYMPH # 0.9 x10^3/uL (1.0-4.8); LYMPH % 28 % (24-48); MEAN CORPUSCULAR HEMOGLOBIN 29 pg (25-35); MEAN CORPUSCULAR HGB CONC 33 g/dL (31-37); MEAN CORPUSCULAR VOLUME 88 fL (79-100); MONO # 0.4 x10^3/uL (0.0-1.1); MONO % 11 % (0-9); NEUT # 1.8 x10^3uL (1.8-7.7); NEUT % 54 % (31-73); PLATELET COUNT 154 x10^3/uL (140-400); RED CELL DISTRIBUTION WIDTH 13.2 % (11.5-14.5); WHITE BLOOD COUNT 3.3 x10^3/uL (4.0-11.0)
--- NOTE | 2018-09-19 07:07 | EKG ---
[facility] [address] [place] [address] Test Date: 2018-09-18 Test Time: 09:03:27 Pat Name: STANTON ROMERO Department: Room: 563 1 Gender: M [employer] Engineering [employer]: : [id number] Requested By: KEISHA KING Order Number: [id number] Reading MD: Evens Box MD Measurements Intervals [place] Rate: 64 P: 32 SD: 198 QRS: -21 QRSD: 72 T: 15 QT: 388 QTc: 404 Interpretive Statements SINUS RHYTHM Electronically Signed On 09-27-2018 22:14:19 CDT by Evens Box MD
[2018-09-19 07:27] LABS: ALBUMIN/GLOBULIN RATIO 0.9 (1.0-1.7); CREATININE 0.7 mg/dL (0.7-1.3); GFR 116.7; TOTAL BILIRUBIN 0.7 mg/dL (0.2-1.0); TOTAL PROTEIN 6.4 g/dL (6.4-8.2)
--- NOTE | 2018-09-19 09:03 | PDOC ---
SURGICAL PROGRESS NOTE Subjective reports minimal pain 2-3, mostly epigastric no n/v overall feels much better Vital Signs Vital Signs Date Time Temp Pulse Resp B/P (MAP) Pulse Ox O2 Delivery O2 Flow Rate FiO2 09/19/18 07:00 98.2 64 18 105/69 (81) 100 Room Air 98.2 I&O Intake and Output 09/19/18 07:00 Intake Total 0 ml Output Total 550 ml Balance -550 ml Intake Oral 0 ml Output Urine Total 550 ml General: Alert, Oriented X3, Cooperative, No acute distress Abdomen: Soft, Other (ND, mild epigastric TTP) Labs Laboratory Tests Test 09/18/18 08:39 09/18/18 09:00 09/19/18 06:35 Urine Collection Type Unknown Urine Color Yellow Urine Clarity Clear Urine pH 7.5 Urine Specific [place] 1.020 Urine Protein Negative mg/dL (NEG-TRACE) Urine Glucose (UA) Negative mg/dL (NEG) Urine Ketones (Stick) Negative mg/dL (NEG) Urine Blood Negative (NEG) Urine Nitrite Negative (NEG) Urine Bilirubin Negative (NEG) Urine Urobilinogen Dipstick 1.0 mg/dL (0.2 mg/dL) Urine Leukocyte Esterase Negative (NEG) Urine RBC 0 /HPF (0-2) Urine WBC 1-4 /HPF (0-4) Urine Squamous Epithelial Cells Occ /LPF Urine Bacteria 0 /HPF (0-FEW) White Blood Count 3.8 x10^3/uL (4.0-11.0) 3.3 x10^3/uL (4.0-11.0) Red Blood Count 5.27 x10^6/uL (4.30-5.70) 5.00 x10^6/uL (4.30-5.70) Hemoglobin 15.2 g/dL (13.0-17.5) 14.3 g/dL (13.0-17.5) Hematocrit 45.7 % (39.0-53.0) 43.9 % (39.0-53.0) Mean Corpuscular Volume 87 fL (79-100) 88 fL (79-100) Mean Corpuscular Hemoglobin 29 pg (25-35) 29 pg (25-35) Mean Corpuscular Hemoglobin Concent 33 g/dL (31-37) 33 g/dL (31-37) Red Cell Distribution Width 13.3 % (11.5-14.5) 13.2 % (11.5-14.5) Platelet Count 198 x10^3/uL (140-400) 154 x10^3/uL (140-400) Neutrophils (%) (Auto) 48 % (31-73) 54 % (31-73) Lymphocytes (%) (Auto) 33 % (24-48) 28 % (24-48) Monocytes (%) (Auto) 13 % (0-9) 11 % (0-9) Eosinophils (%) (Auto) 6 % (0-3) 6 % (0-3) Basophils (%) (Auto) 1 % (0-3) 1 % (0-3) Neutrophils # (Auto) 1.8 x10^3uL (1.8-7.7) 1.8 x10^3uL (1.8-7.7) Lymphocytes # (Auto) 1.2 x10^3/uL (1.0-4.8) 0.9 x10^3/uL (1.0-4.8) Monocytes # (Auto) 0.5 x10^3/uL (0.0-1.1) 0.4 x10^3/uL (0.0-1.1) Eosinophils # (Auto) 0.2 x10^3/uL (0.0-0.7) 0.2 x10^3/uL (0.0-0.7) Basophils # (Auto) 0.0 x10^3/uL (0.0-0.2) 0.0 x10^3/uL (0.0-0.2) Prothrombin Time 13.3 SEC (11.7-14.0) Prothromb Time International Ratio 1.0 (0.8-1.1) Sodium Level 144 mmol/L (136-145) 144 mmol/L (136-145) Potassium Level 3.8 mmol/L (3.5-5.1) 4.0 mmol/L (3.5-5.1) Chloride Level 106 mmol/L (98-107) 106 mmol/L (98-107) Carbon Dioxide Level 28 mmol/L (21-32) 28 mmol/L (21-32) Anion Gap 10 (6-14) 10 (6-14) Blood Urea Nitrogen 11 mg/dL (8-26) 7 mg/dL (8-26) Creatinine 0.6 mg/dL (0.7-1.3) 0.7 mg/dL (0.7-1.3) Estimated GFR (Cockcroft-Gault) 139.4 116.7 BUN/Creatinine Ratio 18 (6-20) 10 (6-20) Glucose Level 122 mg/dL (70-99) 94 mg/dL (70-99) Calcium Level 8.4 mg/dL (8.5-10.1) 8.0 mg/dL (8.5-10.1) Total Bilirubin 0.4 mg/dL (0.2-1.0) 0.7 mg/dL (0.2-1.0) Aspartate Amino Transf (AST/SGOT) 55 U/L (15-37) 19 U/L (15-37) Alanine Aminotransferase (ALT/SGPT) 37 U/L (16-63) 27 U/L (16-63) Alkaline Phosphatase 105 U/L (46-116) 89 U/L (46-116) Troponin I Quantitative < 0.017 ng/mL (0.000-0.055) Total Protein 6.9 g/dL (6.4-8.2) 6.4 g/dL (6.4-8.2) Albumin 3.5 g/dL (3.4-5.0) 3.0 g/dL (3.4-5.0) Albumin/Globulin Ratio 1.0 (1.0-1.7) 0.9 (1.0-1.7) Lipase 1184 U/L (73-393) 194 U/L (73-393) Laboratory Tests Test 09/19/18 06:35 White Blood Count 3.3 x10^3/uL (4.0-11.0) Red Blood Count 5.00 x10^6/uL (4.30-5.70) Hemoglobin 14.3 g/dL (13.0-17.5) Hematocrit 43.9 % (39.0-53.0) Mean Corpuscular Volume 88 fL (79-100) Mean Corpuscular Hemoglobin 29 pg (25-35) Mean Corpuscular Hemoglobin Concent 33 g/dL (31-37) Red Cell Distribution Width 13.2 % (11.5-14.5) Platelet Count 154 x10^3/uL (140-400) Neutrophils (%) (Auto) 54 % (31-73) Lymphocytes (%) (Auto) 28 % (24-48) Monocytes (%) (Auto) 11 % (0-9) Eosinophils (%) (Auto) 6 % (0-3) Basophils (%) (Auto) 1 % (0-3) Neutrophils # (Auto) 1.8 x10^3uL (1.8-7.7) Lymphocytes # (Auto) 0.9 x10^3/uL (1.0-4.8) Monocytes # (Auto) 0.4 x10^3/uL (0.0-1.1) Eosinophils # (Auto) 0.2 x10^3/uL (0.0-0.7) Basophils # (Auto) 0.0 x10^3/uL (0.0-0.2) Sodium Level 144 mmol/L (136-145) Potassium Level 4.0 mmol/L (3.5-5.1) Chloride Level 106 mmol/L (98-107) Carbon Dioxide Level 28 mmol/L (21-32) Anion Gap 10 (6-14) Blood Urea Nitrogen 7 mg/dL (8-26) Creatinine 0.7 mg/dL (0.7-1.3) Estimated GFR (Cockcroft-Gault) 116.7 BUN/Creatinine Ratio 10 (6-20) Glucose Level 94 mg/dL (70-99) Calcium Level 8.0 mg/dL (8.5-10.1) Total Bilirubin 0.7 mg/dL (0.2-1.0) Aspartate Amino Transf (AST/SGOT) 19 U/L (15-37) Alanine Aminotransferase (ALT/SGPT) 27 U/L (16-63) Alkaline Phosphatase 89 U/L (46-116) Total Protein 6.4 g/dL (6.4-8.2) Albumin 3.0 g/dL (3.4-5.0) Albumin/Globulin Ratio 0.9 (1.0-1.7) Lipase 194 U/L (73-393) Assessment/Plan gs pancreatitis improved plans for DARRELL Boudreaux APRN Sep 19, 2018 09:03
[2018-09-19] MEDS ORDERED: IOHEXOL 300 MG/ML 100ML VIAL. ONE (09:41)
[2018-09-19] MEDS ORDERED: BUPIVAC MPF-EPI 0.5%-1:200000 30 ML VIAL. ONE (09:41)
[2018-09-19] MEDS ORDERED: GLUCAGON,HUMAN RECOMBINANT 1 MG/ML VIAL. ONE (09:41)
[2018-09-19] MEDS ORDERED: SURGICEL HEMOSTAT 4X8 EACH. ONE (09:41)
[2018-09-19] MEDS ORDERED: DEXAMETHASONE SOD PHOS 20 MG/5 ML VIAL. ONE (10:05)
[2018-09-19] MEDS ORDERED: PROPOFOL 20 ML IV ONE (10:05)
[2018-09-19] MEDS ORDERED: ONDANSETRON PF 4 MG/2 ML VIAL. ONE (10:05)
[2018-09-19] MEDS ORDERED: fentaNYL PF VIAL 100 MCG/2 ML VIAL ONE ×3 (10:06→12:26)
[2018-09-19] MEDS ORDERED: IV RINGERS,LACTATED 1000ML 1,000 ML IV SCH (10:23)
[2018-09-19] MEDS ORDERED: LIDOCAINE 1% PF 2 ML VIAL. ID PRN (10:30)
[2018-09-19] MEDS ORDERED: PROCHLORPERAZINE 10 MG/2 ML VIAL. IV PRN (10:30)
[2018-09-19] MEDS ORDERED: ONDANSETRON PF 4 MG/2 ML VIAL. IV PRN ×2 (10:30→12:15)
[2018-09-19] MEDS ORDERED: HYDROmorphone 2 MG/ML VIAL IV PRN ×2 (10:30→12:15)
[2018-09-19] MEDS ORDERED: fentaNYL PF VIAL 100 MCG/2 ML VIAL IV PRN (10:30)
[2018-09-19] MEDS ORDERED: ROCURONIUM 50 MG/5 ML VIAL. ONE (10:36)
--- NOTE | 2018-09-19 11:09 | PDOC ---
Objective: Vital Signs: Vital Signs Date Time Temp Pulse Resp B/P (MAP) Pulse Ox O2 Delivery O2 Flow Rate FiO2 09/19/18 08:00 Room Air 09/19/18 07:00 98.2 64 18 105/69 (81) 100 98.2 Labs: Laboratory Tests Test 09/19/18 06:35 White Blood Count 3.3 x10^3/uL Red Blood Count 5.00 x10^6/uL Hemoglobin 14.3 g/dL Hematocrit 43.9 % Mean Corpuscular Volume 88 fL Mean Corpuscular Hemoglobin 29 pg Mean Corpuscular Hemoglobin Concent 33 g/dL Red Cell Distribution Width 13.2 % Platelet Count 154 x10^3/uL Neutrophils (%) (Auto) 54 % Lymphocytes (%) (Auto) 28 % Monocytes (%) (Auto) 11 % Eosinophils (%) (Auto) 6 % Basophils (%) (Auto) 1 % Neutrophils # (Auto) 1.8 x10^3uL Lymphocytes # (Auto) 0.9 x10^3/uL Monocytes # (Auto) 0.4 x10^3/uL Eosinophils # (Auto) 0.2 x10^3/uL Basophils # (Auto) 0.0 x10^3/uL Sodium Level 144 mmol/L Potassium Level 4.0 mmol/L Chloride Level 106 mmol/L Carbon Dioxide Level 28 mmol/L Anion Gap 10 Blood Urea Nitrogen 7 mg/dL Creatinine 0.7 mg/dL Estimated GFR (Cockcroft-Gault) 116.7 BUN/Creatinine Ratio 10 Glucose Level 94 mg/dL Calcium Level 8.0 mg/dL Total Bilirubin 0.7 mg/dL Aspartate Amino Transf (AST/SGOT) 19 U/L Alanine Aminotransferase (ALT/SGPT) 27 U/L Alkaline Phosphatase 89 U/L Total Protein 6.4 g/dL Albumin 3.0 g/dL Albumin/Globulin Ratio 0.9 Lipase 194 U/L Imaging: CT A/P IMPRESSION: 1. Previous lumbar surgery. 2. Previous gastric bypass. 3. Mild to moderate fluid in the stomach. 4. No bowel obstruction or ascites or other acute finding in the abdomen. 5. Dilated pancreatic duct with a dilated duct or cyst in the head of the pancreas, follow-up would be of benefit. Abd US IMPRESSION: 1. Cholelithiasis with cholecystitis. CBD 3mm. PE: out of room A/P: Pancreatitis - lipase now WNL, LFTs remain WNL Cholelithiasis, cholecystitis S/p gastric bypass -- Out for cholecystectomy, will follow. NEERAJ MCKENNA Sep 19, 2018 11:09
--- NOTE | 2018-09-19 11:39 | NUR ---
SW following for discharge planning. Discussed with RN, pt is from home with . RN advised no SW needs and anticipates possible discharge home today with self care.
--- NOTE | 2018-09-19 12:06 | RAD ---
Intraoperative cholangiogram, 09/19/2018: HISTORY: Cholecystectomy 5 spot films from surgery are presented for review. Contrast has been injected into the cystic duct remnant. 27 seconds of fluoroscopy time was utilized. There is good flow contrast into the duodenum at the ampulla. The common bile duct is at the upper limits of normal in size. No filling defect is seen in the common duct to suggest a retained calculus. No contrast extravasation is seen. IMPRESSION: No significant abnormality is detected. Electronically signed by: Donnie Glover MD (09/19/2018 12:02 PM) [facility]
--- NOTE | 2018-09-19 12:08 | PDOC ---
BRIEF OPERATIVE NOTE Date: Sep 19, 2018 Pre-Op Diagnosis gallstone pancreatitis Post-Op Diagnosis same Procedure Performed l/s cholecystectomy with cholangiograms Surgeon Jacob Roof Promenade Tile Setter Klaudia ZAZUETA Anesthesia Type: General Blood Loss 15cc IV Fluid 300cc Specimens Obtained GB Findings edematous, distended GB, normal grams Complications none MIKE HERRERA MD Sep 19, 2018 12:08
[2018-09-19] MEDS ORDERED: 0.9 % SODIUM CHLORIDE 10 ML DISP.SYRIN. IV PRN (12:15)
[2018-09-19] MEDS ORDERED: diphenhydrAMINE HCL 25 MG CAPSULE PO PRN (12:15)
[2018-09-19] MEDS ORDERED: DEXTROSE 50% 25 GM / 50ML DISP.SYRIN. IV PRN (12:15)
[2018-09-19] MEDS ORDERED: oxyCODONE/APAP 5/325 1 TAB TABLET PO PRN ×2 (12:15)
[2018-09-19] MEDS: fentaNYL PF VIAL 100 MCG/2 ML VIAL IV PRN ×4 (12:21→12:54)
[2018-09-19] MEDS ORDERED: MORPHINE SULFATE 2 MG/ML VIAL. ONE (12:51)
[2018-09-19] MEDS: MORPHINE SULFATE 2 MG/ML VIAL. IV PRN ×2 (12:53→13:16)
[2018-09-19] MEDS: POTASSIUM CL 20MEQ-0.45% NACL 1,000 ML IV SCH (14:46)
--- NOTE | 2018-09-19 19:12 | OP ---
DATE OF SURGERY: 09/19/2018 PREOPERATIVE DIAGNOSIS: Gallstone pancreatitis. POSTOPERATIVE DIAGNOSES: Gallstone pancreatitis with acute cholecystitis. PROCEDURE: Laparoscopic cholecystectomy with cholangiogram. SURGEON: Harvinder Herrera MD THERMOSTAT MACHINE TENDER: Klaudia ZAZUETA. ANESTHESIA: General endotracheal. ESTIMATED BLOOD LOSS: 15. INTRAVENOUS FLUID: 300. INDICATIONS: The patient is a 58-year-old, admitted with gallstone pancreatitis, brought for cholecystectomy. OPERATIVE FINDINGS: The gallbladder was edematous, distended and had some omental adhesions. Liver was smooth and sharp. Visual inspection of the remainder of the abdomen failed to reveal obvious abnormalities. DESCRIPTION OF PROCEDURE: The patient was brought to the operating suite, given a general endotracheal anesthetic and the abdomen prepped and draped in usual sterile fashion. A supraumbilical incision was infiltrated with local anesthetic, incised and a 5 mm Visiport used to safely gain access into the abdominal cavity, taking care to avoid injury to abdominal contents. Pneumoperitoneum established. Camera inserted. Inspection carried out with results as noted above. With the table in reverse Trendelenburg rolled to the left, the epigastric, midclavicular and lateral ports were placed under direct vision. The gallbladder was aspirated of approximately 120 mL of concentrated bile to allow grasping of the fundus and retraction superolaterally. With gentle blunt and cautery dissection, we swept off the adhesions along the inferior aspect of the gallbladder, taking care to avoid injury to the adjacent bowel. The cystic duct and cystic artery were isolated. The duct was clipped on the gallbladder side. Cholangiograms were made. These were normal. In light of this, the catheter was removed. The cystic duct was clipped x 3 and divided, taking care to avoid injury or compromise the common duct. An anterior and posterior branch of the cystic artery were doubly clipped and divided and gallbladder freed from the bed with cautery dissection. Two-thirds up the fossa a tertiary vessel was encountered intact. It was clipped and divided and gallbladder freed from the bed and placed in an EndoCatch bag. Hemostasis obtained in the fossa with cautery and a small piece of Surgicel. No evidence of bile leak was seen. A 19-Palestinian round Suleman drain was brought through the epigastric port out the lateral port, sewn to the skin with a silk stitch and left in the subhepatic space for postoperative drainage. Table returned to level. Gallbladder delivered through the epigastric incision. Epigastric incision closed with interrupted 0 Vicryl suture. Intra-abdominal pressure decreased to 6 cm of water. No bleeding from the epigastric closure or from the midclavicular port site after its removal or from the drain site. Abdomen decompressed. Skin incisions closed with subcuticular 4-0 Monocryl. Steri-Strips and sterile dressings applied. The patient was awakened from his anesthetic and taken to the recovery room in satisfactory condition. HARVINDER HERRERA MD DR: CITLALLI/gallito JOB#: [id number] / [id number]
--- NOTE | 2018-09-19 20:49 | PDOC ---
PROGRESS NOTES Chief Complaint Chief Complaint Gallstone pancreatitis History of gastric bypass s/p cholecystectomy Plan: follow recommendations from makeup sales consultant katja from the medical stand point fo view. reassess in the am History of Present Illness History of Present Illness No complaints during my visit. Vitals Vitals Vital Signs Date Time Temp Pulse Resp B/P (MAP) Pulse Ox O2 Delivery O2 Flow Rate FiO2 09/19/18 14:45 90 18 134/74 (94) 99 Room Air 09/19/18 13:46 2.0 09/19/18 13:14 97.7 97.7 Physical Exam General: Alert, Oriented X3, Cooperative, No acute distress Heart: Regular rate, Normal S1, Normal S2 Abdomen: Soft, Other (ND, mild epigastric TTP) Extremities: No clubbing, No cyanosis Skin: No rashes Labs LABS Laboratory Tests Test 09/19/18 06:35 White Blood Count 3.3 x10^3/uL (4.0-11.0) Red Blood Count 5.00 x10^6/uL (4.30-5.70) Hemoglobin 14.3 g/dL (13.0-17.5) Hematocrit 43.9 % (39.0-53.0) Mean Corpuscular Volume 88 fL (79-100) Mean Corpuscular Hemoglobin 29 pg (25-35) Mean Corpuscular Hemoglobin Concent 33 g/dL (31-37) Red Cell Distribution Width 13.2 % (11.5-14.5) Platelet Count 154 x10^3/uL (140-400) Neutrophils (%) (Auto) 54 % (31-73) Lymphocytes (%) (Auto) 28 % (24-48) Monocytes (%) (Auto) 11 % (0-9) Eosinophils (%) (Auto) 6 % (0-3) Basophils (%) (Auto) 1 % (0-3) Neutrophils # (Auto) 1.8 x10^3uL (1.8-7.7) Lymphocytes # (Auto) 0.9 x10^3/uL (1.0-4.8) Monocytes # (Auto) 0.4 x10^3/uL (0.0-1.1) Eosinophils # (Auto) 0.2 x10^3/uL (0.0-0.7) Basophils # (Auto) 0.0 x10^3/uL (0.0-0.2) Sodium Level 144 mmol/L (136-145) Potassium Level 4.0 mmol/L (3.5-5.1) Chloride Level 106 mmol/L (98-107) Carbon Dioxide Level 28 mmol/L (21-32) Anion Gap 10 (6-14) Blood Urea Nitrogen 7 mg/dL (8-26) Creatinine 0.7 mg/dL (0.7-1.3) Estimated GFR (Cockcroft-Gault) 116.7 BUN/Creatinine Ratio 10 (6-20) Glucose Level 94 mg/dL (70-99) Calcium Level 8.0 mg/dL (8.5-10.1) Total Bilirubin 0.7 mg/dL (0.2-1.0) Aspartate Amino Transf (AST/SGOT) 19 U/L (15-37) Alanine Aminotransferase (ALT/SGPT) 27 U/L (16-63) Alkaline Phosphatase 89 U/L (46-116) Total Protein 6.4 g/dL (6.4-8.2) Albumin 3.0 g/dL (3.4-5.0) Albumin/Globulin Ratio 0.9 (1.0-1.7) Lipase 194 U/L (73-393) Comment Review of Relevant I have reviewed the following items sonja (where applicable) has been applied. Labs Laboratory Tests Test 09/18/18 08:39 09/18/18 09:00 09/19/18 06:35 Urine Collection Type Unknown Urine Color Yellow Urine Clarity Clear Urine pH 7.5 Urine Specific Forrest 1.020 Urine Protein Negative mg/dL (NEG-TRACE) Urine Glucose (UA) Negative mg/dL (NEG) Urine Ketones (Stick) Negative mg/dL (NEG) Urine Blood Negative (NEG) Urine Nitrite Negative (NEG) Urine Bilirubin Negative (NEG) Urine Urobilinogen Dipstick 1.0 mg/dL (0.2 mg/dL) Urine Leukocyte Esterase Negative (NEG) Urine RBC 0 /HPF (0-2) Urine WBC 1-4 /HPF (0-4) Urine Squamous Epithelial Cells Occ /LPF Urine Bacteria 0 /HPF (0-FEW) White Blood Count 3.8 x10^3/uL (4.0-11.0) 3.3 x10^3/uL (4.0-11.0) Red Blood Count 5.27 x10^6/uL (4.30-5.70) 5.00 x10^6/uL (4.30-5.70) Hemoglobin 15.2 g/dL (13.0-17.5) 14.3 g/dL (13.0-17.5) Hematocrit 45.7 % (39.0-53.0) 43.9 % (39.0-53.0) Mean Corpuscular Volume 87 fL (79-100) 88 fL (79-100) Mean Corpuscular Hemoglobin 29 pg (25-35) 29 pg (25-35) Mean Corpuscular Hemoglobin Concent 33 g/dL (31-37) 33 g/dL (31-37) Red Cell Distribution Width 13.3 % (11.5-14.5) 13.2 % (11.5-14.5) Platelet Count 198 x10^3/uL (140-400) 154 x10^3/uL (140-400) Neutrophils (%) (Auto) 48 % (31-73) 54 % (31-73) Lymphocytes (%) (Auto) 33 % (24-48) 28 % (24-48) Monocytes (%) (Auto) 13 % (0-9) 11 % (0-9) Eosinophils (%) (Auto) 6 % (0-3) 6 % (0-3) Basophils (%) (Auto) 1 % (0-3) 1 % (0-3) Neutrophils # (Auto) 1.8 x10^3uL (1.8-7.7) 1.8 x10^3uL (1.8-7.7) Lymphocytes # (Auto) 1.2 x10^3/uL (1.0-4.8) 0.9 x10^3/uL (1.0-4.8) Monocytes # (Auto) 0.5 x10^3/uL (0.0-1.1) 0.4 x10^3/uL (0.0-1.1) Eosinophils # (Auto) 0.2 x10^3/uL (0.0-0.7) 0.2 x10^3/uL (0.0-0.7) Basophils # (Auto) 0.0 x10^3/uL (0.0-0.2) 0.0 x10^3/uL (0.0-0.2) Prothrombin Time 13.3 SEC (11.7-14.0) Prothromb Time International Ratio 1.0 (0.8-1.1) Sodium Level 144 mmol/L (136-145) 144 mmol/L (136-145) Potassium Level 3.8 mmol/L (3.5-5.1) 4.0 mmol/L (3.5-5.1) Chloride Level 106 mmol/L (98-107) 106 mmol/L (98-107) Carbon Dioxide Level 28 mmol/L (21-32) 28 mmol/L (21-32) Anion Gap 10 (6-14) 10 (6-14) Blood Urea Nitrogen 11 mg/dL (8-26) 7 mg/dL (8-26) Creatinine 0.6 mg/dL (0.7-1.3) 0.7 mg/dL (0.7-1.3) Estimated GFR (Cockcroft-Gault) 139.4 116.7 BUN/Creatinine Ratio 18 (6-20) 10 (6-20) Glucose Level 122 mg/dL (70-99) 94 mg/dL (70-99) Calcium Level 8.4 mg/dL (8.5-10.1) 8.0 mg/dL (8.5-10.1) Total Bilirubin 0.4 mg/dL (0.2-1.0) 0.7 mg/dL (0.2-1.0) Aspartate Amino Transf (AST/SGOT) 55 U/L (15-37) 19 U/L (15-37) Alanine Aminotransferase (ALT/SGPT) 37 U/L (16-63) 27 U/L (16-63) Alkaline Phosphatase 105 U/L (46-116) 89 U/L (46-116) Troponin I Quantitative < 0.017 ng/mL (0.000-0.055) Total Protein 6.9 g/dL (6.4-8.2) 6.4 g/dL (6.4-8.2) Albumin 3.5 g/dL (3.4-5.0) 3.0 g/dL (3.4-5.0) Albumin/Globulin Ratio 1.0 (1.0-1.7) 0.9 (1.0-1.7) Lipase 1184 U/L (73-393) 194 U/L (73-393) Laboratory Tests Test 09/19/18 06:35 White Blood Count 3.3 x10^3/uL (4.0-11.0) Red Blood Count 5.00 x10^6/uL (4.30-5.70) Hemoglobin 14.3 g/dL (13.0-17.5) Hematocrit 43.9 % (39.0-53.0) Mean Corpuscular Volume 88 fL (79-100) Mean Corpuscular Hemoglobin 29 pg (25-35) Mean Corpuscular Hemoglobin Concent 33 g/dL (31-37) Red Cell Distribution Width 13.2 % (11.5-14.5) Platelet Count 154 x10^3/uL (140-400) Neutrophils (%) (Auto) 54 % (31-73) Lymphocytes (%) (Auto) 28 % (24-48) Monocytes (%) (Auto) 11 % (0-9) Eosinophils (%) (Auto) 6 % (0-3) Basophils (%) (Auto) 1 % (0-3) Neutrophils # (Auto) 1.8 x10^3uL (1.8-7.7) Lymphocytes # (Auto) 0.9 x10^3/uL (1.0-4.8) Monocytes # (Auto) 0.4 x10^3/uL (0.0-1.1) Eosinophils # (Auto) 0.2 x10^3/uL (0.0-0.7) Basophils # (Auto) 0.0 x10^3/uL (0.0-0.2) Sodium Level 144 mmol/L (136-145) Potassium Level 4.0 mmol/L (3.5-5.1) Chloride Level 106 mmol/L (98-107) Carbon Dioxide Level 28 mmol/L (21-32) Anion Gap 10 (6-14) Blood Urea Nitrogen 7 mg/dL (8-26) Creatinine 0.7 mg/dL (0.7-1.3) Estimated GFR (Cockcroft-Gault) 116.7 BUN/Creatinine Ratio 10 (6-20) Glucose Level 94 mg/dL (70-99) Calcium Level 8.0 mg/dL (8.5-10.1) Total Bilirubin 0.7 mg/dL (0.2-1.0) Aspartate Amino Transf (AST/SGOT) 19 U/L (15-37) Alanine Aminotransferase (ALT/SGPT) 27 U/L (16-63) Alkaline Phosphatase 89 U/L (46-116) Total Protein 6.4 g/dL (6.4-8.2) Albumin 3.0 g/dL (3.4-5.0) Albumin/Globulin Ratio 0.9 (1.0-1.7) Lipase 194 U/L (73-393) Medications Current Medications Sodium Chloride 1,000 ml @ 1,000 mls/hr Q1H IV Last administered on 09/18/18at 09:18; Start 09/18/18 at 09:01; Stop 09/18/18 at 10:00; Status DC Ondansetron HCl (Zofran) 4 mg 1X ONCE IV Last administered on 09/18/18at 09:20 ; Start 09/18/18 at 09:15; Stop 09/18/18 at 09:16; Status DC Pantoprazole Sodium (PROTONIX VIAL for IV PUSH) 40 mg 1X ONCE IVP Last administered on 09/18/18at 09:22; Start 09/18/18 at 09:15; Stop 09/18/18 at 09:16 ; Status DC Iohexol (Omnipaque 300 Mg/ml) 75 ml 1X ONCE IV Last administered on 09/18/18at 09:37; Start 09/18/18 at 09:45; Stop 09/18/18 at 09:46; Status DC Info (CONTRAST GIVEN -- Rx MONITORING) 1 each PRN DAILY PRN MC SEE COMMENTS; Start 09/18/18 at 09:45; Stop 09/20/18 at 09:44 Ondansetron HCl (Zofran) 4 mg PRN Q8HRS PRN IV NAUSEA/VOMITING; Start 09/18/18 at 10:30; Stop 09/19/18 at 10:29; Status DC Morphine Sulfate (Morphine Sulfate) 4 mg PRN Q2HR PRN IV PAIN Last administered on 09/18/18at 21:08; Start 09/18/18 at 10:30; Stop 09/19/18 at 10:29 ; Status DC Sodium Chloride 1,000 ml @ 150 mls/hr Q6H40M IV Last administered on at 05:14; Start 09/18/18 at 10:28; Stop 09/19/18 at 10:27; Status DC Acetaminophen (Tylenol) 650 mg PRN Q4HRS PRN PO FEVER; Start 09/18/18 at 10:30 ; Stop 09/19/18 at 10:29; Status DC Piperacillin Sod/ Tazobactam Sod (Zosyn Per Pharmacy) 1 each PRN DAILY PRN MC SEE COMMENTS; Start 09/18/18 at 11:45 Piperacillin Sod/ Tazobactam Sod 3.375 gm/Sodium Chloride 50 ml @ 100 mls/hr Q6HRS IV Last administered on 09/19/18at 18:12; Start 09/18/18 at 12:00 Propofol 20 ml @ As Directed STK-MED ONCE IV ; Start 09/19/18 at 10:05; Stop 05/30 at 10:06; Status DC Ondansetron HCl (Zofran) 4 mg STK-MED ONCE .ROUTE ; Start 09/19/18 at 10:05; Stop 09/19/18 at 10:06; Status DC Dexamethasone Sodium Phosphate (Decadron) 20 mg STK-MED ONCE .ROUTE ; Start 05/30 at 10:05; Stop 09/19/18 at 10:06; Status DC Fentanyl Citrate (Fentanyl 2ml Vial) 100 mcg STK-MED ONCE .ROUTE ; Start at 10:06; Stop 09/19/18 at 10:07; Status DC Ondansetron HCl (Zofran) 4 mg PRN Q6HRS PRN IV NAUSEA/VOMITING; Start 09/19/18 at 10:30; Stop 09/20/18 at 10:29 Fentanyl Citrate (Fentanyl 2ml Vial) 25 mcg PRN Q5MIN PRN IV MILD PAIN; Start 09/19/18 at 10:30; Stop 09/20/18 at 10:29 Fentanyl Citrate (Fentanyl 2ml Vial) 50 mcg PRN Q5MIN PRN IV MODERATE TO SEVERE PAIN Last administered on 09/19/18at 12:54; Start 09/19/18 at 10:30; Stop 09/20/18 at 10:29 Morphine Sulfate (Morphine Sulfate) 1 mg PRN Q10MIN PRN IV SEVERE PAIN Last administered on 09/19/18at 13:16; Start 09/19/18 at 10:30; Stop 09/20/18 at 10:29 Ringer's Solution 1,000 ml @ 30 mls/hr Q24H IV Last administered on 09/19/18at 12:46; Start 09/19/18 at 10:23; Stop 09/19/18 at 22:22 Lidocaine HCl (Xylocaine-Mpf 1% 2ml Vial) 2 ml PRN 1X PRN ID PRIOR TO IV START ; Start 09/19/18 at 10:30; Stop 09/20/18 at 10:29 Hydromorphone HCl (Dilaudid) 0.5 mg PRN Q10MIN PRN IV SEV PAIN, Second choice; Start 09/19/18 at 10:30; Stop 09/20/18 at 10:29 Prochlorperazine Edisylate (Compazine) 5 mg PACU PRN PRN IV NAUSEA, MRX1; Start 09/19/18 at 10:30; Stop 09/20/18 at 10:29 Rocuronium Delcambre (Zemuron) 50 mg STK-MED ONCE .ROUTE ; Start 09/19/18 at 10:36 ; Stop 09/19/18 at 10:37; Status DC Bupivacaine HCl/ Epinephrine Bitart (Sensorcain-Mpf Epi 0.5%-1:300129) 30 ml STK -MED ONCE .ROUTE Last administered on 09/19/18at 11:19; Start 09/19/18 at 09:41 ; Stop 09/19/18 at 10:42; Status DC Glucagon (Glucagen) 1 mg STK-MED ONCE .ROUTE ; Start 09/19/18 at 09:41; Stop 05/30 at 10:42; Status DC Iohexol (Omnipaque 300 Mg/ml) 100 ml STK-MED ONCE .ROUTE Last administered on at 11:33; Start 09/19/18 at 09:41; Stop 09/19/18 at 10:42; Status DC Cellulose (Surgicel Hemostat 4x8) 1 each STK-MED ONCE .ROUTE Last administered on 09/19/18at 11:48; Start 09/19/18 at 09:41; Stop 09/19/18 at 10:42; Status DC Diphenhydramine HCl (Benadryl) 25 mg PRN Q6HRS PRN PO ITCHING; Start 09/19/18 at 12:15 Enoxaparin Sodium (Lovenox 40mg Syringe) 40 mg Q24H SQ ; Start 09/20/18 at 08:00 Sodium Chloride (Normal Saline Flush) 3 ml QSHIFT PRN IV AFTER MEDS AND BLOOD DRAWS; Start 09/19/18 at 12:15 Potassium Chloride/Sodium Chloride 1,000 ml @ 100 mls/hr Q10H IV Last administered on 09/19/18at 14:46; Start 09/19/18 at 12:02 Dextrose (Dextrose 50%-Water Syringe) 12.5 gm PRN Q15MIN PRN IV SEE COMMENTS; Start 09/19/18 at 12:15 Oxycodone/ Acetaminophen (Percocet 5/325) 1 tab PRN Q4HRS PRN PO MILD PAIN, 1ST CHOICE; Start 09/19/18 at 12:15 Oxycodone/ Acetaminophen (Percocet 5/325) 2 tab PRN Q4HRS PRN PO MODERATE PAIN , SEVERE PAIN; Start 09/19/18 at 12:15 Hydromorphone HCl (Dilaudid) 1 mg PRN Q4HRS PRN IV PAIN; Start 09/19/18 at 12: 15 Docusate Sodium (Colace) 100 mg BID PO ; Start 09/19/18 at 21:00 Ondansetron HCl (Zofran) 4 mg PRN Q6HRS PRN IV NAUESA, 1ST CHOICE; Start at 12:15 Fentanyl Citrate (Fentanyl 2ml Vial) 100 mcg STK-MED ONCE .ROUTE ; Start at 12:16; Stop 09/19/18 at 12:17; Status DC Fentanyl Citrate (Fentanyl 2ml Vial) 100 mcg STK-MED ONCE .ROUTE ; Start at 12:26; Stop 09/19/18 at 12:27; Status DC Morphine Sulfate (Morphine Sulfate) 2 mg STK-MED ONCE .ROUTE ; Start 09/19/18 at 12:51; Stop 09/19/18 at 12:52; Status DC Influenza Virus Vaccine (Afluria Trivalent [id number] Syringe) 0.5 ml ONCE ONCE VAX IM Last administered on 09/19/18at 18:10; Start 09/19/18 at 16:30; Stop 05/30 at 16:31; Status DC Active Scripts Active [Oxycodone Hcl/Acetaminophen] 1 TAB Tablet 1 Tab PO PRN Q4HRS PRN Reported Cyclobenzaprine Hcl 10 Mg Tablet 1 Tab PO TID Cyclobenzaprine Hcl 10 Mg Tablet 1 Tab PO TID PRN Percocet 5-325 Mg Tablet (Oxycodone/Acetaminophen) 1 Each Tablet 1-2 Tab PO Q4DAYS Lisinopril 5 Mg Tablet 1 Tab PO DAILY LAST DOSE GIVEN: DATE: 03/08 TIME: 9 am NEXT DOSE DUE: DATE: 03/09 TIME: 9 am Vitals/I & O Vital Sign - Last 24 Hours 09/18/18 09/18/18 09/18/18 09/19/18 21:08 22:08 23:00 03:01 Temp 98.6 98.1 98.6 98.1 Pulse 100 56 Resp 18 B/P (MAP) 104/58 (73) 96/54 (68) Pulse Ox 98 98 97 97 O2 Delivery Room Air Room Air BiPAP/CPAP Room Air 09/19/18 09/19/18 09/19/18 09/19/18 07:00 08:00 10:30 12:14 Temp 98.2 98.2 97.7 98.2 98.2 97.7 Pulse 64 64 88 Resp 18 16 B/P (MAP) 105/69 (81) 116/69 154/87 Pulse Ox 100 100 99 O2 Delivery Room Air Room Air Room Air Room Air Nasal Cannula O2 Flow Rate 10 09/19/18 09/19/18 09/19/18 09/19/18 12:21 12:29 12:38 12:44 Temp 97.7 97.7 97.7 97.7 Pulse 87 81 Resp 16 15 15 B/P (MAP) 137/73 131/65 Pulse Ox 100 96 96 100 O2 Delivery Simple Mask Room Air Room Air Room Air Nasal Cannula Nasal Cannula O2 Flow Rate 10.0 10.0 10.0 10.0 3/11/19 3/11/19 3/11/19 3/11/19 12:48 12:51 12:53 12:54 Resp 15 14 15 15 Pulse Ox 96 96 96 O2 Delivery Room Air Nasal Cannula Room Air Room Air O2 Flow Rate 10.0 2.0 10.0 10.0 09/19/18 09/19/18 09/19/18 09/19/18 12:59 13:14 13:16 13:30 Temp 97.7 97.7 97.7 97.7 Pulse 88 82 84 Resp 16 15 15 18 B/P (MAP) 123/80 123/80 126/78 (94) Pulse Ox 95 95 95 95 O2 Delivery Room Air Room Air Nasal Cannula Room Air Nasal Cannula Nasal Cannula O2 Flow Rate 10.0 2 2.0 09/19/18 09/19/18 09/19/18 09/19/18 13:45 13:46 14:00 14:15 Pulse 87 89 95 Resp 18 14 18 18 B/P (MAP) 112/72 (85) 122/71 (88) 132/75 (94) Pulse Ox 98 97 99 O2 Delivery Room Air Nasal Cannula Room Air Room Air O2 Flow Rate 2.0 09/19/18 14:45 Pulse 90 Resp 18 B/P (MAP) 134/74 (94) Pulse Ox 99 O2 Delivery Room Air Intake and Output 09/18/18 09/18/18 09/19/18 15:00 23:00 07:00 Intake Total 0 ml 0 ml Output Total 550 ml Balance 0 ml -550 ml KAILA KNUTSON MD Sep 19, 2018 20:49
[2018-09-19] MEDS: DOCUSATE SODIUM 100 MG CAPSULE. PO SCH (21:38)
[2018-09-20] MEDS: PIPERACILLIN/TAZOBACTAM 3.375 GM in IV NORMAL SALINE 50ML 50 ML IV SCH ×3 (00:35→12:26)
[2018-09-20] MEDS: POTASSIUM CL 20MEQ-0.45% NACL 1,000 ML IV SCH ×2 (00:35→10:29)
[2018-09-20 03:00] VITALS: BP 100/67
[2018-09-20 07:00] VITALS: BP 142/77
[2018-09-20] MEDS ORDERED: ENOXAPARIN 40 MG/0.4 ML SYRINGE. SQ SCH (08:00)
--- NOTE | 2018-09-20 09:28 | PDOC ---
DARRELL RAE TURF MANAGER 09/20/18 0928: SURGICAL PROGRESS NOTE Subjective pain managed tolerating diet no n/v Vital Signs Vital Signs Date Time Temp Pulse Resp B/P (MAP) Pulse Ox O2 Delivery O2 Flow Rate FiO2 09/20/18 07:00 98.2 62 18 142/77 (98) 97 Room Air 98.2 09/19/18 13:46 2.0 I&O Intake and Output 09/20/18 06:59 Intake Total 2660 ml Output Total 1755 ml Balance 905 ml Intake Oral 500 ml IV Total 2160 ml Output Urine Total 1700 ml Estimated Blood Loss 15 ml Other 40 ml Abdomen: Soft, Other (ND, lap dressings dry, ashli serosang) Labs Laboratory Tests Test 09/19/18 06:35 White Blood Count 3.3 x10^3/uL (4.0-11.0) Red Blood Count 5.00 x10^6/uL (4.30-5.70) Hemoglobin 14.3 g/dL (13.0-17.5) Hematocrit 43.9 % (39.0-53.0) Mean Corpuscular Volume 88 fL (79-100) Mean Corpuscular Hemoglobin 29 pg (25-35) Mean Corpuscular Hemoglobin Concent 33 g/dL (31-37) Red Cell Distribution Width 13.2 % (11.5-14.5) Platelet Count 154 x10^3/uL (140-400) Neutrophils (%) (Auto) 54 % (31-73) Lymphocytes (%) (Auto) 28 % (24-48) Monocytes (%) (Auto) 11 % (0-9) Eosinophils (%) (Auto) 6 % (0-3) Basophils (%) (Auto) 1 % (0-3) Neutrophils # (Auto) 1.8 x10^3uL (1.8-7.7) Lymphocytes # (Auto) 0.9 x10^3/uL (1.0-4.8) Monocytes # (Auto) 0.4 x10^3/uL (0.0-1.1) Eosinophils # (Auto) 0.2 x10^3/uL (0.0-0.7) Basophils # (Auto) 0.0 x10^3/uL (0.0-0.2) Sodium Level 144 mmol/L (136-145) Potassium Level 4.0 mmol/L (3.5-5.1) Chloride Level 106 mmol/L (98-107) Carbon Dioxide Level 28 mmol/L (21-32) Anion Gap 10 (6-14) Blood Urea Nitrogen 7 mg/dL (8-26) Creatinine 0.7 mg/dL (0.7-1.3) Estimated GFR (Cockcroft-Gault) 116.7 BUN/Creatinine Ratio 10 (6-20) Glucose Level 94 mg/dL (70-99) Calcium Level 8.0 mg/dL (8.5-10.1) Total Bilirubin 0.7 mg/dL (0.2-1.0) Aspartate Amino Transf (AST/SGOT) 19 U/L (15-37) Alanine Aminotransferase (ALT/SGPT) 27 U/L (16-63) Alkaline Phosphatase 89 U/L (46-116) Total Protein 6.4 g/dL (6.4-8.2) Albumin 3.0 g/dL (3.4-5.0) Albumin/Globulin Ratio 0.9 (1.0-1.7) Lipase 194 U/L (73-393) Assessment/Plan s/p tho ok to dc home if tolerates diet home with drain, FU on Wednesday MIKE HERRERA MD 09/20/18 1257: SURGICAL PROGRESS NOTE Assessment/Plan pt seen agree with above home with drain DARRELL RAE APRN Sep 20, 2018 09:28 MIKE HERRERA MD Sep 20, 2018 12:57
--- NOTE | 2018-09-20 10:07 | PDOC ---
Subjective: Subjective: Some minor incisional pain. Tolerating clears, passing gas, asking to go home. Objective: Vital Signs: Vital Signs Date Time Temp Pulse Resp B/P (MAP) Pulse Ox O2 Delivery O2 Flow Rate FiO2 09/20/18 07:00 98.2 62 18 142/77 (98) 97 Room Air 98.2 09/19/18 13:46 2.0 Imaging: IOC IMPRESSION: No significant abnormality is detected. PE: GEN: NAD, up to chair HEART: RRR ABD: BS+, soft NEURO/PSYCH: A & O 3 A/P: S/p cholecystectomy H/o gastric bypass -- Improved post-op. DC per primary/surgery. NEERAJ MCKENNA Sep 20, 2018 10:07
[2018-09-20] MEDS: DOCUSATE SODIUM 100 MG CAPSULE. PO SCH (10:18)
[2018-09-20 11:00] VITALS: BP 121/82
--- NOTE | 2018-09-20 14:00 | PDOC3 ---
Discharge Summary Visit Information Date of Admission: Sep 18, 2018 Date of Discharge: Sep 20, 2018 Admitting Diagnosis Comment: Acute pancreatitis Final Diagnosis Gallstone pancreatitis History of gastric bypass s/p cholecystectomy Brief Hospital Course Allergies Allergies Coded Allergies Type Severity Reaction Last Updated Verified No Known Drug Allergies 03/08/15 No Vital Signs Vital Signs Date Time Temp Pulse Resp B/P (MAP) Pulse Ox O2 Delivery O2 Flow Rate FiO2 09/20/18 11:00 98.0 72 18 121/82 (95) 97 Room Air 98.0 09/20/18 08:00 2.0 Lab Results Laboratory Tests Test 09/19/18 06:35 White Blood Count 3.3 x10^3/uL (4.0-11.0) Red Blood Count 5.00 x10^6/uL (4.30-5.70) Hemoglobin 14.3 g/dL (13.0-17.5) Hematocrit 43.9 % (39.0-53.0) Mean Corpuscular Volume 88 fL (79-100) Mean Corpuscular Hemoglobin 29 pg (25-35) Mean Corpuscular Hemoglobin Concent 33 g/dL (31-37) Red Cell Distribution Width 13.2 % (11.5-14.5) Platelet Count 154 x10^3/uL (140-400) Neutrophils (%) (Auto) 54 % (31-73) Lymphocytes (%) (Auto) 28 % (24-48) Monocytes (%) (Auto) 11 % (0-9) Eosinophils (%) (Auto) 6 % (0-3) Basophils (%) (Auto) 1 % (0-3) Neutrophils # (Auto) 1.8 x10^3uL (1.8-7.7) Lymphocytes # (Auto) 0.9 x10^3/uL (1.0-4.8) Monocytes # (Auto) 0.4 x10^3/uL (0.0-1.1) Eosinophils # (Auto) 0.2 x10^3/uL (0.0-0.7) Basophils # (Auto) 0.0 x10^3/uL (0.0-0.2) Sodium Level 144 mmol/L (136-145) Potassium Level 4.0 mmol/L (3.5-5.1) Chloride Level 106 mmol/L (98-107) Carbon Dioxide Level 28 mmol/L (21-32) Anion Gap 10 (6-14) Blood Urea Nitrogen 7 mg/dL (8-26) Creatinine 0.7 mg/dL (0.7-1.3) Estimated GFR (Cockcroft-Gault) 116.7 BUN/Creatinine Ratio 10 (6-20) Glucose Level 94 mg/dL (70-99) Calcium Level 8.0 mg/dL (8.5-10.1) Total Bilirubin 0.7 mg/dL (0.2-1.0) Aspartate Amino Transf (AST/SGOT) 19 U/L (15-37) Alanine Aminotransferase (ALT/SGPT) 27 U/L (16-63) Alkaline Phosphatase 89 U/L (46-116) Total Protein 6.4 g/dL (6.4-8.2) Albumin 3.0 g/dL (3.4-5.0) Albumin/Globulin Ratio 0.9 (1.0-1.7) Lipase 194 U/L (73-393) Brief Hospital Course The patient is a pleasant middle-aged male, who presented with abdominal pain. He states he was doing well this morning, ate breakfast and tolerated that. Within an hour or two later, he developed severe abdominal pain, rated at 10/10. He has associated nausea, food made it worse. Sitting still made it better, yzoh-zid-[id number] meds did not seem to help. I discussed the case with ER physician. We are going to admit the patient and consult GI. Patient was admitted to the medical lower where he was seen in consultation by GI and surgery. The patient was noted to have cholelithiasis and subsequently pancreatitis was diagnosed as a consequence of the underlying gallstones. Patient was seen in consultation by surgery as stated before and he underwent a cholecystectomy laparoscopically. The patient recently had a gastric bypass and has lost a lot of weight which may have prompted this episode. The patient tolerated his procedure well he has a draining place and he will be seen in the outpatient setting by the surgeon on Wednesday 2 days after his dismissal. He is in good spirits to be dismissed home he was able to tolerate diet signs and symptoms of alarm were discussed prior to discharge. All of his concerns were addressed to the best of my abilities. Physical exam: Lungs clear to auscultation bilaterally with good inspiratory effort Cardiovascular S1-S2 regular rhythm no murmurs calls or rubs Discharge Information Condition at Discharge: Improved Follow Up: Weeks Disposition/Orders: D/C to Home Scheduled Cyclobenzaprine Hcl (Cyclobenzaprine Hcl) 10 Mg Tablet, 1 TAB PO TID, #90 ( Reported) Entered as Reported by: RENEA SCHUMACHER on 03/08/15 1014 Lisinopril (Lisinopril) 5 Mg Tablet, 1 TAB PO DAILY for blood pressure, #30 Ref 5 (Reported) LAST DOSE GIVEN: DATE: 03/08 TIME: 9 am NEXT DOSE DUE: DATE: 03/09 TIME: 9 am Entered as Reported by: ROMULO GARDUNO on 02/27/15 1413 Oxycodone/Apap 5-325 (Percocet 5-325 Mg Tablet ) 1 Each Tablet, 1-2 TAB PO Q4DAYS, #40 (Reported) Entered as Reported by: RENEA SCHUMACHER on 03/08/15 0952 Scheduled PRN Cyclobenzaprine Hcl (Cyclobenzaprine Hcl) 10 Mg Tablet, 1 TAB PO TID PRN for MUSCLE SPASMS, #90 (Reported) Entered as Reported by: RENEA SCHUMACHER on 03/08/15 1012 [Oxycodone Hcl/Acetaminophen] 1 TAB TABLET, 1 TAB PO PRN Q4HRS PRN for MILD PAIN , 1ST CHOICE Prescribed by: CARYN BARTHOLOMEW on 03/08/15 0943 KAILA KNUTSON MD Sep 20, 2018 14:00
--- NOTE | 2018-09-20 15:26 | NUR ---
Discharge Note: [facility] Discharge instructions and discharge home medications reviewed with Patient and a copy given. All questions have been answered and understanding verbalized. The following instructions and handouts were given: Incision and Drain Care. Patient teaching regarding dressing changes and CECILIA drain. Patient was instructed to f/u with Dr. James on 09/23 for drain removal. Discontinued lines and drains: PIV in Left AC removied, Catheter Intact intact. Patient discharged to Home with Self-Care via Private Vehicle with Spouse.
--- NOTE | 2018-09-20 15:28 | NUR ---
SW following. Discussed with RN, pt possibly able to discharge if can tolerate diet. SW will continue to follow.
--- NOTE | 2018-09-20 16:08 | PATHOLOGY ---
[facility] Accession Number: [id number] . 01 Material submitted: . GALLBLADDER . 01 Clinical history: . Cholelithiasis . 02 Diagnosis: Gallbladder, cholecystectomy: - Bile sludge. - Cholesterolosis, focal. - Chronic cholecystitis with increased eosinophils. . (JPM:mm; 09/20/2018) [facility]/09/20/2018 . 02 Comment: There is bile sludge within the gallbladder lumen. No calculi are identified. There is no evidence of malignancy. . (JPM:mm; 09/20/2018) . 02 Electronically signed: . Donato Singh MD, Pathologist NPI- [id number] . 01 Gross description: . The specimen is received in formalin, labeled "Jacques Payan, gallbladder", is a partially disrupted gallbladder measuring 8.7 x 3.0 x 2.0 cm with a wrinkled, partially hemorrhagic serosa. The lumen is filled with salazar-yellow bile admixed with irregular dark brown to black sludge measuring 1.2 x 0.7 x 0.3 cm in aggregate. The mucosa is salazar-brown, granular and the wall has an average thickness of 0.1 cm. No discrete masses or calculi identified. Elastic [employer]er tissue is submitted in A1. ([facility]; 09/19/2018) SHS/SHS . 02 Pathologist provided ICD-10: K81.1, K82.4 . 02 CPT . 875223 Specimen Comment: A courtesy copy of this report has been sent to Specimen Comment: [phone], . Specimen Comment: Report sent to / DR BOOTHE Specimen Comment: A duplicate report has been generated due to demographic updates. Performed at: [id number] [facility] [address], [place], [place] [id number] MD Edward Tripp MD Phone: [phone] Performed at: [address] [id number] MD Donato Singh MD Phone: [phone]
== END 2018-09-20 14:00 | disposition home or self-care (01) | DRG 417 ==
LOC: ER 08:32 → 5 SOUTH 10:19
PROVIDERS: ADMIT Internal Medicine; ATTEND Internal Medicine
PROC: 5A09357 Assistance with Respiratory Ventilation, Less than 24 Consecutive Hours, Continuous Positive Airway Pressure (ICD-10-PCS; 2018-09-18)
PROC: BF101ZZ Fluoroscopy of Bile Ducts using Low Osmolar Contrast (ICD-10-PCS; 2018-09-19)
PROC: 0FT44ZZ Resection of Gallbladder, Percutaneous Endoscopic Approach (ICD-10-PCS; principal; 2018-09-19 11:00)
DX: K80.00 Calculus of gallbladder with acute cholecystitis without obstruction (principal); K85.10 Biliary acute pancreatitis without necrosis or infection; I10 Essential (primary) hypertension; K82.8 Other specified diseases of gallbladder; K86.89 Other specified diseases of pancreas; Z82.49 Family history of ischemic heart disease and other diseases of the circulatory system; Z98.84 Bariatric surgery status
CPT/HCPCS: 36415; 71045; 74177; 74300; 76705; 80053; 81001; 83690; 84484; 85025; 85610; 88304; 90471; 90756; 93005; 96374; 96375; C9113; J1100; J1610; J1650; J2270; J2405; J2543; J2704; J3010; J3490; J7030; J7120; Q9967; 99285-25; Q2035

== ENCOUNTER 2019-05-22 09:07 | Emergency (ER) | payer BC, OTHER ==
[~2019-05-22] VITALS: Ht 182.9 cm; Wt 95.3 kg
[2019-05-22] MEDS ORDERED: ACETAMINOPHEN 500 MG TABLET PO ONE (09:30)
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
[2019-05-22 10:43] VITALS: BP 132/87
[2019-05-22] MEDS ORDERED: BACITRACIN TOPICAL OINT PACKET. TP ONE (11:00)
== END 2019-05-22 11:21 | disposition home or self-care (01) ==
LOC: ER 09:07
DX: S00.01XA Abrasion of scalp, initial encounter (principal); S00.81XA Abrasion of other part of head, initial encounter; S00.31XA Abrasion of nose, initial encounter; S80.212A Abrasion, left knee, initial encounter; S80.211A Abrasion, right knee, initial encounter; S50.812A Abrasion of left forearm, initial encounter; M25.512 Pain in left shoulder; M25.552 Pain in left hip; Z98.84 Bariatric surgery status; V47.5XXA Car driver injured in collision with fixed or stationary object in traffic accident, initial encounter; Y93.I9 Activity, other involving external motion; Y92.410 Unspecified street and highway as the place of occurrence of the external cause; Y99.8 Other external cause status
CPT/HCPCS: 70450; 71045; 73030; 73070; 73502; 73562; 99284-25

== ENCOUNTER → 2019-06-26 | Outpatient (CLI) | payer OTHER ==
[~2019-06-26] MED LIST changes: +IOHEXOL 240 MG/ML 50ML VIAL. PO ONE; +IOHEXOL 300 MG/ML 100ML VIAL. IV ONE
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
== END | disposition home or self-care (01) ==
LOC: KCIC CT 07:55
PROVIDERS: ATTEND Family Medicine
DX: K59.09 Other constipation (principal); M51.37 Other intervertebral disc degeneration, lumbosacral region; M48.07 Spinal stenosis, lumbosacral region; S32.058D Other fracture of fifth lumbar vertebra, subsequent encounter for fracture with routine healing; I10 Essential (primary) hypertension; Z87.891 Personal history of nicotine dependence; Z98.890 Other specified postprocedural states; X58.XXXD Exposure to other specified factors, subsequent encounter
CPT/HCPCS: 74177; Q9966; Q9967

== ENCOUNTER → 2019-06-30 | Outpatient (CLI) | payer OTHER ==
[~2019-06-30] MED LIST changes: +GADOTERATE 5 MMOL/10ML VIAL. IVP ONE; -IOHEXOL 240 MG/ML 50ML VIAL. PO ONE; -IOHEXOL 300 MG/ML 100ML VIAL. IV ONE
--- NOTE | 2019-06-30 17:26 | KCIC ---
MRI abdomen with and without contrast: Clinical indications: Pancreatic abnormality. COMPARISON: CT study of the abdomen and pelvis dated June 26, 2019. CT study of the abdomen and pelvis dated September 18, 2018. Technique: T1 and T2 weighted MRI sequences of the abdomen was performed in the axial and coronal planes. In phase and out of phase MRI sequences were performed as well. Findings: The liver is homogeneous in appearance. The spleen is homogeneous in appearance. The spleen is not enlarged. There is diffuse atrophy of the body and tail of the pancreas. There is diffuse dilatation of the main pancreatic duct measuring up to 8 mm. The pancreatic duct appears beaded within the tail and body. The pancreatic duct is dilated all way down into the head of the pancreas. The gallbladder is surgically absent. There is dilatation of the extra hepatic biliary tree down into the head of pancreas. The common bile that measures up to 8 mm in caliber. No adrenal mass is evident. Both kidneys are normal. No focal aneurysmal dilatation of the abdominal aorta is seen. No enlarged abdominal lymphadenopathy is seen. No ascites is seen. IMPRESSION: Since September 18, 2018, there has been progressive dilatation of the main pancreatic duct from 2 mm up to 8 mm. This could be due to progressive atrophy of the body and tail of the pancreas but the thickness of the body and tail of pancreas has not changed significantly from September 18, 2018 to June 26, 2019. In addition, the main pancreatic duct is dilated down into the head of the pancreas but is not seen distal to this point. The finding is concerning for a pancreatic neoplasm or pancreatic duct stricture of the head of the pancreas. The transverse dimension of the head of the pancreas measures 2.8 cm and this has not changed significantly between those 2 studies. There is heterogeneous enhancement of the head of the pancreas on MRI with no discrete mass of the head of the pancreas as seen by MRI. The common bile duct is mildly dilated measuring 8 mm in caliber. This could be secondary to reservoir effect after cholecystectomy or could be dilated due to neoplasm or stricture within the head of the pancreas. In addition, the soft tissues around the head of the pancreas appear more hazy on the recent CT study on June 26, 2019.Therefore, correlation with pancreatic enzymes and CEA 19-9 is recommended. No discrete edema is seen here on the T2-weighted images on the MRI study today. No peripancreatic free fluid or pseudocyst is seen. Endoscopic ultrasound may be beneficial. The main pancreatic duct appears beaded within the body and tail of the pancreas. This may be seen with chronic pancreatitis but there is no calcification of the pancreas on the CT study to indicate this diagnosis. No hepatic metastasis or enlarged abdominal lymphadenopathy is evident. Electronically signed by: Javier Smith MD (06/30/2019 5:23 PM) [facility]
== END | disposition home or self-care (01) ==
LOC: KCIC MRI 10:27
PROVIDERS: ATTEND Family Medicine
DX: K86.89 Other specified diseases of pancreas (principal)
CPT/HCPCS: 74183; A9575

== ENCOUNTER → 2019-08-21 | Outpatient (CLI) | payer OTHER ==
[~2019-08-21] MED LIST changes: -GADOTERATE 5 MMOL/10ML VIAL. IVP ONE
--- NOTE | 2019-08-23 19:03 | SLEEP ---
DATE OF STUDY: 08/21/2019 HOME SLEEP STUDY REFERRING PHYSICIAN: Roque Gilmore M.D. The patient is 59 years old who weighs 200 pounds with a BMI of 27.1. The patient's Comstock score was 5. The patient underwent home sleep study performed at [facility]. Total recording time was 201 minutes. During the night study, the patient had 16 obstructive apneas, no central apneas, 10 mixed apneas, and 2 hypopneas. The patient's AHI was 8.3 per hour. Mean oxygen saturation remained around 93% with the lowest of 87%. Only 0.1 minutes were spent in oxygen saturation less than 90%. Mean heart rate 62 beats per minute. IMPRESSION: 1. Mild sleep apnea-hypopnea syndrome at an AHI of 8.3 per hour. 2. No clinically significant nocturnal hypoxia. RECOMMENDATIONS: 1. The patient has mild sleep apnea. If the patient is clinically symptomatic or has comorbid conditions, then consider treatment of sleep apnea with either CPAP versus oral appliance. 2. Weight loss to the ideal body weight is recommended. 3. Avoid DIE KEEPER depressants. 4. Cautioned regarding driving until symptoms of sleep apnea resolve with above recommendations. NADEEM JACKMAN MD DR: NICOLAS/gallito JOB#: [id number] / [id number] ROQUE Chan MD
== END | disposition home or self-care (01) ==
LOC: RT 08:22
PROVIDERS: ATTEND Family Medicine
DX: G47.33 Obstructive sleep apnea (adult) (pediatric) (principal)
CPT/HCPCS: G0399

== ENCOUNTER 2021-09-03 04:22 | Observation (INO) | payer MEDICAID, OTHER ==
[~2021-09-03] VITALS: Ht 182.9 cm; Wt 96.7 kg
[~2021-09-03 04:22] MED LIST changes: +CYCL10TA19 PO; -CYCL10TA2 PO; -LISI-338 PO; +LISI5TAB15 PO
[2021-09-03] MEDS ORDERED: MORPHINE SULFATE 2 MG/ML INJ. IVP ONE (04:30)
[2021-09-03] MEDS ORDERED: IV NORMAL SALINE 500ML BAG 500 ML IV ONE (04:30)
--- NOTE | 2021-09-03 04:57 | RAD ---
XR CHEST 1V 09/03/2021 4:43 AM INDICATION: Chest pain COMPARISON: 05/22/2019 TECHNIQUE: Portable frontal view of the chest is provided. FINDINGS: The cardiomediastinal silhouette is within normal limits. Lungs are clear. Right chest wall infusion port catheter is identified with the distal tip projecting over the mid superior vena cava. There are no significant pleural effusions. There is no pulmonary vascular congestion. No pneumothora x. No suspicious osseous abnormality. IMPRESSION: There is no acute cardiopulmonary process. Electronically signed by: Chantelle Jamil MD (09/03/2021 4:55 AM) [facility]
--- NOTE | 2021-09-03 05:07 | EKG ---
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
[2021-09-03 05:08] LABS: BASO % 0 % (0-3); EOS # 0.1 x10^3/uL (0.0-0.7); EOS % 1 % (0-3); HEMATOCRIT 35.1 % (39.0-53.0); HEMOGLOBIN 11.3 g/dL (13.0-17.5); LYMPH % 10 % (24-48); MEAN CORPUSCULAR HEMOGLOBIN 30 pg (25-35); MEAN CORPUSCULAR HGB CONC 32 g/dL (31-37); MEAN CORPUSCULAR VOLUME 93 fL (79-100); MONO # 1.4 x10^3/uL (0.0-1.1); MONO % 14 % (0-9); NEUT # 7.5 x10^3/uL (1.8-7.7); NEUT % 75 % (31-73); PLATELET COUNT 93 x10^3/uL (140-400); RED BLOOD COUNT 3.77 x10^6/uL (4.30-5.70); RED CELL DISTRIBUTION WIDTH 14.6 % (11.5-14.5)
[2021-09-03 05:17] LABS: ANION GAP 11 (6-14); BLOOD UREA NITROGEN 12 mg/dL (8-26); BUN/CREATININE RATIO 24 (6-20); CALCIUM 7.3 mg/dL (8.5-10.1); CARBON DIOXIDE 20 mmol/L (21-32); CHLORIDE 105 mmol/L (98-107); CREATININE 0.5 mg/dL (0.7-1.3); GFR 170.2; GLUCOSE 78 mg/dL (70-99); POTASSIUM 4.4 mmol/L (3.5-5.1); PROTHROMBIN TIME PATIENT 12.5 SEC (11.7-14.0); SODIUM 136 mmol/L (136-145)
--- NOTE | 2021-09-03 05:18 | PHYS DOC ---
Past Medical History Past Medical History: No Pertinent History (DANIELLE HUERTA MD) Past Surgical History: Cholecystectomy Additional Past Surgical Histo: gastric bypass, multiple back surgeries, knee (DANIELLE HUERTA MD) Smoking Status: Former Smoker Alcohol Use: None Drug Use: None (DANIELLE HUERTA MD) Adult General Chief Complaint Chief Complaint: CHEST PAIN-CARDIAC NATURE HPI HPI The patient is a 61-year-old male with a history of hypertension and pancreatic cancer currently receiving chemotherapy (last chemotherapy was about a week ago). He presents for evaluation of midsternal pressure-like chest discomfort, somewhat pleuritic and nonexertional in character, with onset about an hour prior to arrival, awakening him from sleep. Discomfort is not severe, is characterized as about a 3 out of 10 in severity, it does not radiate. Patient has never had this discomfort before. He denies associated fevers, nausea or vomiting, upper respiratory congestion/rhinorrhea, cough, sore throat, shortness of breath, abdominal pain, flank pain, back pain, pain or swelling to arms or legs. Patient received a full-strength aspirin and a sublingual nitroglycerin en route per EMS. He is alert and pleasantly and appropriately interactive and in no acute distress with appropriate vital signs upon initial evaluation here in the emergency department. (DANIELLE HUERTA MD) Review of Systems Review of Systems A 12 point review of systems was completed and was negative except where noted in HPI above. (DANIELLE HUERTA MD) Current Medications Current Medications Current Medications Medications (Trade) Dose Ordered Sig/Rosita Start Time Stop Time Status Last Admin Dose Admin Info (CONTRAST GIVEN -- Rx MONITORING) 1 each PRN DAILY PRN 09/03/21 05:30 09/05/21 05:29 Iohexol (Omnipaque 350 Mg/ml) 100 ml 1X ONCE 09/03/21 05:30 09/03/21 05:31 DC 09/03/21 05:46 100 ML Morphine Sulfate (Morphine Sulfate) 2 mg 1X ONCE 09/03/21 04:30 09/03/21 04:31 DC 09/03/21 05:05 2 MG Sodium Chloride 500 ml @ 500 mls/hr 1X ONCE 09/03/21 04:30 09/03/21 05:29 DC 09/03/21 04:30 500 MLS/HR (ALEIDA RIVERS DO) Allergies Allergies Allergies Coded Allergies Type Severity Reaction Last Updated Verified No Known Drug Allergies 03/08/15 No (ALEIDA RIVERS DO) Physical Exam Physical Exam 61-year-old chronically ill-appearing male appearing nontoxic and in no acute distress. Head is normocephalic and atraumatic. Neck is supple and nontender. Oropharynx is moist. Lungs are clear to auscultation at all stations. There is a normal S1 and S2 without rubs or gallops and capillary refill is appropriate, less than 2 seconds globally. Abdomen is soft, nontender and nondistended. No pulsatile mass. Skin is warm and dry without cyanosis, clubbing or edema. Psychiatrically, the patient demonstrates appropriate mood and affect and is alert. Evaluation of the extremities reveals BUEs and BLEs neurovascular intact distally with strength 5 out of 5, sensation intact light touch in all nerve distributions, radial, DP and PT pulses 2+ and equal bilaterally, capillary refill less than 2 seconds, hands and feet warm and well-perfused. No dependent peripheral edema distally. No calf tenderness or swelling bilaterally. Gisela's test is negative bilaterally. (DANIELLE HUERTA MD) Current Patient Data Vital Signs Vital Signs Date Time Temp Pulse Resp B/P (MAP) Pulse Ox O2 Delivery O2 Flow Rate FiO2 09/03/21 05:05 Room Air 09/03/21 04:30 98.0 72 17 134/91 (105) 100 98.0 (ALEIDA RIVERS DO) Lab Values Laboratory Tests Test 09/03/21 05:00 White Blood Count 10.0 x10^3/uL (4.0-11.0) Red Blood Count 3.77 x10^6/uL (4.30-5.70) L Hemoglobin 11.3 g/dL (13.0-17.5) L Hematocrit 35.1 % (39.0-53.0) L Mean Corpuscular Volume 93 fL (79-100) Mean Corpuscular Hemoglobin 30 pg (25-35) Mean Corpuscular Hemoglobin Concent 32 g/dL (31-37) Red Cell Distribution Width 14.6 % (11.5-14.5) H Platelet Count 93 x10^3/uL (140-400) L Neutrophils (%) (Auto) 75 % (31-73) H Lymphocytes (%) (Auto) 10 % (24-48) L Monocytes (%) (Auto) 14 % (0-9) H Eosinophils (%) (Auto) 1 % (0-3) Basophils (%) (Auto) 0 % (0-3) Neutrophils # (Auto) 7.5 x10^3/uL (1.8-7.7) Lymphocytes # (Auto) 1.0 x10^3/uL (1.0-4.8) Monocytes # (Auto) 1.4 x10^3/uL (0.0-1.1) H Eosinophils # (Auto) 0.1 x10^3/uL (0.0-0.7) Basophils # (Auto) 0.0 x10^3/uL (0.0-0.2) Prothrombin Time 12.5 SEC (11.7-14.0) Prothrombin Time INR 0.9 (0.8-1.1) Activated Partial Thromboplast Time 27 SEC (24-38) D-Dimer (Amina) 1.94 ug/mlFEU (0.00-0.50) H Sodium Level 136 mmol/L (136-145) Potassium Level 4.4 mmol/L (3.5-5.1) Chloride Level 105 mmol/L (98-107) Carbon Dioxide Level 20 mmol/L (21-32) L Anion Gap 11 (6-14) Blood Urea Nitrogen 12 mg/dL (8-26) Creatinine 0.5 mg/dL (0.7-1.3) L Estimated GFR (Cockcroft-Gault) 170.2 BUN/Creatinine Ratio 24 (6-20) H Glucose Level 78 mg/dL (70-99) Calcium Level 7.3 mg/dL (8.5-10.1) L Total Bilirubin < 0.1 mg/dL (0.2-1.0) L Aspartate Amino Transferase (AST) 20 U/L (15-37) Alanine Aminotransferase (ALT) 19 U/L (16-63) Alkaline Phosphatase 108 U/L (46-116) Troponin I High Sensitivity 7 ng/L (4-75) CX-Hzz-H-Type Natriuretic Peptide 94 pg/mL (0-124) Total Protein 3.9 g/dL (6.4-8.2) L Albumin 1.7 g/dL (3.4-5.0) L Albumin/Globulin Ratio 0.8 (1.0-1.7) L Lipase 25 U/L (73-393) L Laboratory Tests 09/03/21 05:00 Laboratory Tests 09/03/21 05:00 (ALEIDA RIVERS DO) EKG EKG Sinus rhythm, rate 71, first-degree AV block, no acute ST elevation or depression, AK 202, QTc 400, EP interpretation. Nonischemic tracing, intervals appropriate. (DANIELLE HUERTA MD) Radiology/Procedures Radiology/Procedures XR CHEST 1V 09/03/2021 4:43 AM INDICATION: Chest pain COMPARISON: 05/22/2019 TECHNIQUE: Portable frontal view of the chest is provided. FINDINGS: The cardiomediastinal silhouette is within normal limits. Lungs are clear. Right chest wall infusion port catheter is identified with the distal tip projecting over the mid superior vena cava. There are no significant pleural effusions. There is no pulmonary vascular congestion. No pneumothorax. No suspicious osseous abnormality. IMPRESSION: There is no acute cardiopulmonary process. Electronically signed by: Yesenia Merchant MD (09/03/2021 4:55 AM) [facility] DICTATED and SIGNED BY: YESENIA MERCHANT MD DATE: 09/03/21 [id number] (DANIELLE HUERTA MD) Course & Med Decision Making Course & Med Decision Making 61-year-old gentleman with active pancreatic cancer presenting for evaluation of pleuritic chest discomfort with onset about an hour prior to arrival. Vital signs and clinical examination are generally reassuring. Already received an aspirin. Will check labs, EKG and CT angiography of the chest as noted and will then reevaluate. (DANIELLE HUERTA MD) Dragon Disclaimer Dragon Disclaimer This electronic medical record was generated, in whole or in part, using a voice recognition dictation system. (DANIELLE HUERTA MD) Departure Departure Impression: Primary Impression: Other chest pain Additional Impression: History of pancreatic cancer Disposition: ADMITTED INPATIENT Admitting Physician: MY (ALEIDA RIVERS DO) Condition: STABLE Referrals: BARTOLOME BOOTHE MD (PCP) Problem Qualifiers DANIELLE HUERTA MD Sep 03, 2021 05:18 ALEIDA RIVERS DO Sep 03, 2021 06:44
[2021-09-03 05:22] LABS: D-DIMER 1.94 ug/mlFEU (0.00-0.50)
[2021-09-03 05:24] LABS: ALBUMIN 1.7 g/dL (3.4-5.0); ALBUMIN/GLOBULIN RATIO 0.8 (1.0-1.7); ALK PHOS 108 U/L (46-116); ALT (SGPT) 19 U/L (16-63); AST (SGOT) 20 U/L (15-37); TOTAL PROTEIN 3.9 g/dL (6.4-8.2)
[2021-09-03 05:25] LABS: TOTAL BILIRUBIN < 0.1 mg/dL (0.2-1.0)
[2021-09-03] MEDS ORDERED: IOHEXOL 350 MG/ML 100 ML VIAL. IV ONE (05:30)
[2021-09-03] MEDS ORDERED: CONTRAST GIVEN. MC PRN (05:30)
--- NOTE | 2021-09-03 05:55 | RAD ---
PQRS Compliance Statement: One or more of the following individualized dose reduction techniques were utilized for this examinat ion: 1. Automated exposure control 2. Adjustment of the mA and/or kV according to patient size 3. Use of iterative reconstruction technique CTA CHEST 09/03/2021 5:25 AM INDICATION: Pancreatic cancer; chest pain COMPARISON: None available TECHNIQUE: Axial CT images of the chest were obtained after the intravenous administration of nonioni c contrast. Coronal and sagittal reformats are provided. Maximum intensity projection images of the t horacic vasculature are provided. FINDINGS: The thyroid gland is normal in appearance.. Right chest wall infusion port catheter is identified wit h the distal tip terminating the superior vena cava. There are no pathologically enlarged axillary, m ediastinal or hilar lymph nodes. The heart size is within normal limits. No significant pericardial e ffusion. Thoracic aorta is normal in course and caliber. There is adequate opacification of the pulmonary arterial system. There there are no filling defects within the pulmonary arterial system to suggest acute or chronic pulmonary embolus. 6 mm triangular nodule along the right major fissure favors an intrapulmonary lymph node, however rem ains indeterminate. There are no pulmonary infiltrates. There are no pleural effusions. No pulmonary vascular congestion or pneumothorax. Eccentric wall thickening involving the stomach. Gastric stent is visualized. Diffuse dilatation of t he main pancreatic duct measuring up to 10 mm. Biliary stent identified within the common bile duct. Primary pancreatic neoplasm is poorly visualized. Pneumobilia. No suspicious osseous lesions are visu alized. IMPRESSION: There is no evidence for acute or chronic pulmonary embolism. 6 mm triangular nodule along the right major fissure, indeterminate. Fleischner guidelines for incide ntally detected pulmonary nodules suggests CT chest at 6-12 months, then consider CT at 18-24 months for single solid noncalcified pulmonary nodule 6-8 mm in size. Gastric stent is identified. There is stent is noted. Primary pancreatic neoplasm is poorly evaluated on this examination. Electronically signed by: Chantelle Jamil MD (09/03/2021 5:53 AM) [facility]
[2021-09-03] MEDS ORDERED: ONDANSETRON PF 4 MG/2 ML VIAL. IVP PRN (06:45)
[2021-09-03] MEDS ORDERED: MORPHINE SULFATE 4 MG/ML INJ. IVP PRN (06:45)
[2021-09-03] MEDS ORDERED: CYCLOBENZAPRINE 10 MG TABLET. PO PRN (12:30)
[2021-09-03] MEDS ORDERED: LISINOPRIL 5 MG TABLET. PO SCH (13:00)
--- NOTE | 2021-09-03 13:59 | PDOC1 ---
History and Physical Date of Service: DOS: DATE: 09/03/21 TIME: 13:54 Chief Complaint: Chief Complain: chest pain History of Present Illness: HPI: Patient is a 61-year-old male presented the emergency room overnight due to to being woken from sleep with chest pressure. He said he went to bed last night in his usual state health and was woke around 4 AM with pressure feeling on his chest pain was not radiating, was located to the left side of his chest no apparent diaphoresis involved. Denying any other complaints or pains. Patient received aspirin and nitro in route to the emergency room. Troponins and CTA in emergency room both normal. Past Medical/Surgical History: PMH/PSH: Pancreatic cancer on active chemo at Allergies: Allergies: Coded Allergies: No Known Drug Allergies (Unverified , 03/08/15) Family History: Family History: Hypertension Social History: Social History: Former smoker. Denies alcohol drug Current Medications: Current Medications Current Medications Sodium Chloride 500 ml @ 500 mls/hr 1X ONCE IV Last administered on 09/03/21at 04:30; Start 09/03/21 at 04:30; Stop 09/03/21 at 05:29; Status DC Morphine Sulfate (Morphine Sulfate) 2 mg 1X ONCE IVP Last administered on 09/03/21at 05:05; Start 09/03/21 at 04:30; Stop 09/03/21 at 04:31; Status DC Iohexol (Omnipaque 350 Mg/ml) 100 ml 1X ONCE IV Last administered on 09/03/21at 05:46; Start 09/03/21 at 05:30; Stop 09/03/21 at 05:31; Status DC Info (CONTRAST GIVEN -- Rx MONITORING) 1 each PRN DAILY PRN MC SEE COMMENTS; Start 09/03/21 at 05:30; Stop 09/05/21 at 05:29 Ondansetron HCl (Zofran) 4 mg PRN Q8HRS PRN IVP NAUSEA/VOMITING; Start 09/03/21 at 06:45; Stop 09/04/21 at 06:44 Morphine Sulfate (Morphine Sulfate) 4 mg PRN Q2HR PRN IVP PAIN; Start 09/03/21 at 06:45; Stop 09/04/21 at 06:44 Cyclobenzaprine HCl (Flexeril) 10 mg TID PRN PO MUSCLE SPASMS; Start 09/03/21 at 12:30 Lisinopril (Prinivil) 5 mg DAILY PO Last administered on 09/03/21at 12:49; Start 09/03/21 at 13:00 Active Scripts Active [Oxycodone Hcl/Acetaminophen] 1 TAB Tablet 1 Tab PO PRN Q4HRS PRN Reported Cyclobenzaprine Hcl 10 Mg Tablet 1 Tab PO TID Cyclobenzaprine Hcl 10 Mg Tablet 1 Tab PO TID PRN Percocet 5-325 Mg Tablet (Oxycodone/Acetaminophen) 1 Each Tablet 1-2 Tab PO Q4DAYS Lisinopril 5 Mg Tablet 1 Tab PO DAILY LAST DOSE GIVEN: DATE: 03/08 TIME: 9 am NEXT DOSE DUE: DATE: 03/09 TIME: 9 am ROS: Review of Systems Review of System Unless noted in HPI 14 point review of systems was negative Physical Exam: Vital Signs: Vital Signs Date Time Temp Pulse Resp B/P (MAP) Pulse Ox O2 Delivery O2 Flow Rate FiO2 09/03/21 12:49 73 119/79 09/03/21 06:43 98 Room Air 09/03/21 04:30 98.0 17 98.0 Physcial Exam: GEN: No apparent distress. Alert and oriented HEENT: Normal cephalic, atraumatic, external auditory canals are patent EYES: Extraocular muscles are intact, pupil are equally round and reactive to light and accommodation MUSCULOSKELETAL: Well developed , well nourished, good range of motion ENDOCRINE: No thyromegaly was palpated LYMPHATICS: No cervical chain or axillary nodes were noted HEMATOPOIETIC: No bruising NECK: Supple, no JVD, no thyromegaly was noted LUNGS: Clear to auscultation in all lung worley without rhonchi or wheezing HEART: RRR, S!, S2 present. Peripheral pulses intact, no obvious murmurs noted ABDOMEN: Soft, nontender. Positive bowel sounds, no organomegaly, normal bowel sounds EXTREMITIES: Without clubbing, cyanosis, or edema. Pedal pulses intact. Negative Homans sign NEUROLOGIC: Normal speech and tone. A&O x 3, moves all extremities, no obvious focal deficits PSYCHIATRIC: Normal affect, normal mood. Stable SKIN: No ulcerations or rashes, good skin turgor, no jaundice VASCULAR: Good capillary refill, neurovascular bundle appears to be intact Labs: Labs: Laboratory Tests Test 09/03/21 05:00 09/03/21 07:55 09/03/21 08:00 09/03/21 11:18 White Blood Count 10.0 x10^3/uL (4.0-11.0) Red Blood Count 3.77 x10^6/uL (4.30-5.70) Hemoglobin 11.3 g/dL (13.0-17.5) Hematocrit 35.1 % (39.0-53.0) Mean Corpuscular Volume 93 fL (79-100) Mean Corpuscular Hemoglobin 30 pg (25-35) Mean Corpuscular Hemoglobin Concent 32 g/dL (31-37) Red Cell Distribution Width 14.6 % (11.5-14.5) Platelet Count 93 x10^3/uL (140-400) Neutrophils (%) (Auto) 75 % (31-73) Lymphocytes (%) (Auto) 10 % (24-48) Monocytes (%) (Auto) 14 % (0-9) Eosinophils (%) (Auto) 1 % (0-3) Basophils (%) (Auto) 0 % (0-3) Neutrophils # (Auto) 7.5 x10^3/uL (1.8-7.7) Lymphocytes # (Auto) 1.0 x10^3/uL (1.0-4.8) Monocytes # (Auto) 1.4 x10^3/uL (0.0-1.1) Eosinophils # (Auto) 0.1 x10^3/uL (0.0-0.7) Basophils # (Auto) 0.0 x10^3/uL (0.0-0.2) Prothrombin Time 12.5 SEC (11.7-14.0) Prothromb Time International Ratio 0.9 (0.8-1.1) Activated Partial Thromboplast Time 27 SEC (24-38) D-Dimer (Amina) 1.94 ug/mlFEU (0.00-0.50) Sodium Level 136 mmol/L (136-145) Potassium Level 4.4 mmol/L (3.5-5.1) Chloride Level 105 mmol/L (98-107) Carbon Dioxide Level 20 mmol/L (21-32) Anion Gap 11 (6-14) Blood Urea Nitrogen 12 mg/dL (8-26) Creatinine 0.5 mg/dL (0.7-1.3) Estimated GFR (Cockcroft-Gault) 170.2 BUN/Creatinine Ratio 24 (6-20) Glucose Level 78 mg/dL (70-99) Calcium Level 7.3 mg/dL (8.5-10.1) Total Bilirubin < 0.1 mg/dL (0.2-1.0) Aspartate Amino Transf (AST/SGOT) 20 U/L (15-37) Alanine Aminotransferase (ALT/SGPT) 19 U/L (16-63) Alkaline Phosphatase 108 U/L (46-116) Troponin I High Sensitivity 7 ng/L (4-75) 9 ng/L (4-75) DJ-Qem-E-Type Natriuretic Peptide 94 pg/mL (0-124) Total Protein 3.9 g/dL (6.4-8.2) Albumin 1.7 g/dL (3.4-5.0) Albumin/Globulin Ratio 0.8 (1.0-1.7) Lipase 25 U/L (73-393) Glucose (Fingerstick) 93 mg/dL (70-99) SARS-CoV-2 Antigen (Rapid) Negative (NEGATIVE) Laboratory Tests Test 09/03/21 05:00 09/03/21 07:55 09/03/21 08:00 09/03/21 11:18 White Blood Count 10.0 x10^3/uL (4.0-11.0) Red Blood Count 3.77 x10^6/uL (4.30-5.70) Hemoglobin 11.3 g/dL (13.0-17.5) Hematocrit 35.1 % (39.0-53.0) Mean Corpuscular Volume 93 fL (79-100) Mean Corpuscular Hemoglobin 30 pg (25-35) Mean Corpuscular Hemoglobin Concent 32 g/dL (31-37) Red Cell Distribution Width 14.6 % (11.5-14.5) Platelet Count 93 x10^3/uL (140-400) Neutrophils (%) (Auto) 75 % (31-73) Lymphocytes (%) (Auto) 10 % (24-48) Monocytes (%) (Auto) 14 % (0-9) Eosinophils (%) (Auto) 1 % (0-3) Basophils (%) (Auto) 0 % (0-3) Neutrophils # (Auto) 7.5 x10^3/uL (1.8-7.7) Lymphocytes # (Auto) 1.0 x10^3/uL (1.0-4.8) Monocytes # (Auto) 1.4 x10^3/uL (0.0-1.1) Eosinophils # (Auto) 0.1 x10^3/uL (0.0-0.7) Basophils # (Auto) 0.0 x10^3/uL (0.0-0.2) Prothrombin Time 12.5 SEC (11.7-14.0) Prothromb Time International Ratio 0.9 (0.8-1.1) Activated Partial Thromboplast Time 27 SEC (24-38) D-Dimer (Amina) 1.94 ug/mlFEU (0.00-0.50) Sodium Level 136 mmol/L (136-145) Potassium Level 4.4 mmol/L (3.5-5.1) Chloride Level 105 mmol/L (98-107) Carbon Dioxide Level 20 mmol/L (21-32) Anion Gap 11 (6-14) Blood Urea Nitrogen 12 mg/dL (8-26) Creatinine 0.5 mg/dL (0.7-1.3) Estimated GFR (Cockcroft-Gault) 170.2 BUN/Creatinine Ratio 24 (6-20) Glucose Level 78 mg/dL (70-99) Calcium Level 7.3 mg/dL (8.5-10.1) Total Bilirubin < 0.1 mg/dL (0.2-1.0) Aspartate Amino Transf (AST/SGOT) 20 U/L (15-37) Alanine Aminotransferase (ALT/SGPT) 19 U/L (16-63) Alkaline Phosphatase 108 U/L (46-116) Troponin I High Sensitivity 7 ng/L (4-75) 9 ng/L (4-75) EW-Ycb-H-Type Natriuretic Peptide 94 pg/mL (0-124) Total Protein 3.9 g/dL (6.4-8.2) Albumin 1.7 g/dL (3.4-5.0) Albumin/Globulin Ratio 0.8 (1.0-1.7) Lipase 25 U/L (73-393) Glucose (Fingerstick) 93 mg/dL (70-99) SARS-CoV-2 Antigen (Rapid) Negative (NEGATIVE) Assessment/Plan Assessment/Plan Unstable angina versus GERD, history of pancreatic cancer on chemo -Patient presenting with 1 day history of sudden onset chest pain. Says he has had a few episodes like this before but today's was most severe -Work-up in emergency room pretty negative -Monitor on telemetry overnight. However should patient notably improved in terms of symptoms he can discharge this afternoon if desired -Home meds resumed as indicated -DVT prophylaxis -We will try Pepcid in case this is GERD -Continue following with [facility] for cancer -Cardiac diet Justifications for Admission Other Justification ERNESTO ADAN MD Sep 03, 2021 13:59
[2021-09-03 14:42] VITALS: BP 129/83
--- NOTE | 2021-09-03 16:59 | NUR ---
Discharge Note: STANTON ROMERO5 [facility] Discharge instructions and discharge home medications reviewed with Patient and a copy given. All questions have been answered and understanding verbalized. The following instructions and handouts were given: follow up instructions Discontinued lines and drains: 20 guage right AC, tip intact. patient tolerated well. Patient discharged to home with self care via .
[2021-09-03] MEDS ORDERED: FAMOTIDINE 20 MG TABLET. PO SCH (21:00)
== END 2021-09-03 16:50 | disposition home or self-care (01) ==
LOC: ER 04:22 → 5 SOUTH 07:28 → ED HOLD 07:28 → 5 SOUTH 13:17
PROVIDERS: ADMIT Internal Medicine; ATTEND Internal Medicine
DX: R07.89 Other chest pain (principal); Z20.822 Contact with and (suspected) exposure to COVID-19; I10 Essential (primary) hypertension; C25.9 Malignant neoplasm of pancreas, unspecified; Z85.07 Personal history of malignant neoplasm of pancreas; Z87.891 Personal history of nicotine dependence; Z90.49 Acquired absence of other specified parts of digestive tract; Z79.899 Other long term (current) drug therapy; Z98.890 Other specified postprocedural states; Z98.84 Bariatric surgery status
CPT/HCPCS: 36415; 71045; 71275; 80053; 82962; 83690; 83880; 84484; 85025; 85379; 85610; 85730; 87426; 93005; 96361; 96374; 99285; G0378; J2270; J7040; Q9967; U0003; G0379

== ENCOUNTER → 2021-11-18 | Outpatient (CLI) | payer MEDICAID ==
--- NOTE | 2021-11-18 14:20 | KCIC ---
EXAM: Right shoulder, 3 views. HISTORY: Pain. COMPARISON: None. FINDINGS: 3 views of the right shoulder obtained. There is no acute fracture, dislocation or subluxat ion. There is a port catheter terminating over the expected location of the superior cavoatrial junct ion. IMPRESSION: No acute osseous finding. Electronically signed by: Lisette Leigh MD (11/18/2021 2:17 PM) [id number]
== END ==
LOC: KCIC 13:55
PROVIDERS: ATTEND Family Medicine
DX: M25.511 Pain in right shoulder (principal)
CPT/HCPCS: 73030